=== PATIENT | female | born 1970 | race Caucasian/White ===

== ENCOUNTER 2017-11-04 14:09 | Observation (INO) | payer OTHER ==
[2017-11-04] MEDS ORDERED: ONDANSETRON 4 MG/2 ML VIAL IVP STA (14:44)
[2017-11-04] MEDS ORDERED: NITROGLYCERIN OINT 1 INCH/GM PACKET TOPICAL STA (14:44)
[2017-11-04] MEDS ORDERED: SODIUM CHLORIDE 0.9% 1,000 ML IV STA (14:44)
[2017-11-04] MEDS ORDERED: MORPHINE SULFATE 2 MG/ML SYRINGE IVP STA (14:44)
[2017-11-04 14:55] LABS: Basophils # (A) 0.1 k/uL (0-0.2); Basophils % (A) 1 %; Eosinophils # (A) 0.3 k/uL (0-0.7); Eosinophils % (A) 5 %; HCT 43.4 % (34.0-46.0); HGB 14.4 gm/dL (11.4-16.0); Lymphocytes # (A) 2.3 k/uL (1.0-4.8); Lymphocytes % (A) 37 %; MCH 31.8 pg (25.0-35.0); MCHC 33.2 g/dL (31.0-37.0); MCV 95.7 fL (80.0-100.0); Mean Platelet Volume 8.3; Monocytes # (A) 0.3 k/uL (0-1.0); Monocytes % (A) 5 %; Neutrophils # (A) 3.1 k/uL (1.3-7.7); Neutrophils % (A) 50 %; Platelet Count 285 k/uL (150-450); RBC 4.53 m/uL (3.80-5.40); WBC 6.2 k/uL (3.8-10.6)
[2017-11-04 15:06] LABS: ALT 45 U/L (9-52); AST 31 U/L (14-36); Albumin 4.3 g/dL (3.5-5.0); Alkaline Phosphatase 67 U/L (38-126); Anion Gap 10 mmol/L; Blood Urea Nitrogen 14 mg/dL (7-17); Calcium 9.9 mg/dL (8.4-10.2); Carbon Dioxide 23 mmol/L (22-30); Chloride 104 mmol/L (98-107); Glucose 291 mg/dL (74-99); Magnesium 1.7 mg/dL (1.6-2.3); Potassium 4.1 mmol/L (3.5-5.1); Sodium 137 mmol/L (137-145); Total Bilirubin 0.6 mg/dL (0.2-1.3); Total Protein 7.1 g/dL (6.3-8.2)
[2017-11-04 15:08] LABS: D-Dimer 0.21 mg/L FEU (<0.60); Partial Thromboplastin Time 22.4 sec (22.0-30.0)
[2017-11-04 15:10] LABS: Creatine Kinase 78 U/L (30-135)
--- NOTE | 2017-11-04 15:16 | ED ---
Chest Pain HPI - General Chief Complaint: Chest Pain Stated Complaint: Chest pain Time Seen by Provider: 11/04/17 14:44 Source: patient Mode of arrival: wheelchair Limitations: no limitations - History of Present Illness Initial Comments: 47 years old female presents with the chest pain, she was shopping today chest pain started at hour prior to arrival to the ER today she is also short winded and now chest pain gets worse with a deep breaths she has stopped smoking recently but she has smoked for about 30 years prior to that she stated family history significant for heart disease mom had a myocardial infarction in late 40s and dad had a myocardial infarction in the late 40s as well she was quite short winded and now she was diaphoretic and she felt generalized weakness when the chest pain was noticed. She still has a 3/10 chest pain review of system is unremarkable otherwise - Related Data Home Medications Medication Instructions Recorded Confirmed metFORMIN HCL [Glucophage] 500 mg PO BID 04/14/15 11/04/17 Dulaglutide [Trulicity] 1.5 mg SQ HS 11/04/17 11/04/17 metFORMIN HCL 1,000 mg PO BID 11/04/17 11/04/17 Allergies Allergy/AdvReac Type Severity Reaction Status Date / Time ciprofloxacin [From Cipro] Allergy Anaphylaxis Verified 11/04/17 14:49 meperidine HCl [From Demerol] Allergy Unknown Verified 11/04/17 14:49 Sulfa (Sulfonamide Allergy Unknown Verified 11/04/17 14:49 Antibiotics) Review of Systems ROS Statement: Those systems with pertinent positive or pertinent negative responses have been documented in the HPI. ROS Other: All systems not noted in ROS Statement are negative. EKG Findings - EKG Comments: EKG Findings:: I'm EKG is normal sinus ventricular rate is 68 ME interval is 152 QRS duration is 88 QT/QTc is 390/423 and aVF this EKG does not reveal any ST elevation or ST depression Past Medical History Past Medical History: Diabetes Mellitus Additional Past Medical History / Comment(s): lupus, pancreatitis, cardiac arrythmia (unknown) History of Any Multi-Drug Resistant Organisms: None Reported Past Surgical History: Cholecystectomy Additional Past Surgical History / Comment(s): shunt for gallstones Past Psychological History: No Psychological Hx Reported Smoking Status: Current every day smoker Past Alcohol Use History: None Reported Past Drug Use History: None Reported General Exam - General Exam Comments Initial Comments: General: The patient is awake and alert, in no distress, and does not appear acutely ill. Skin: Skin is warm and dry and no rashes or lesions are noted. Eye: Pupils are equal, round and reactive to light, extra-ocular movements are intact; there is normal conjunctiva bilaterally. Ears, nose, mouth and throat: There are moist mucous membranes and no oral lesions. Neck: The neck is supple, there is no tenderness or JVD. Cardiovascular: There is a regular rate and rhythm. No murmur, rub or gallop is appreciated. Respiratory: To auscultation bilateral, no wheezing no rhonchi no distress respiratory moran noticed, lung exam is consistent with the moderate COPD Gastrointestinal: Soft, non-distended, non-tender abdomen without masses or organomegaly noted. There is no rebound or guarding present. Bowel sounds are unremarkable. Back: There is no tenderness to palpation in the midline. There is no obvious deformity. Musculoskeletal: Normal ROM, no tenderness, There is no pedal edema. There is no calf tenderness or swelling. No cords were appreciated. Neurological: CN II-XII intact, Cranial nerves III through XII are intact. There are no obvious motor or sensory deficits. Coordination appears grossly intact. Speech is normal. Psychiatric: Cooperative, appropriate mood & affect, normal judgment. Limitations: no limitations Course Vital Signs 11/04/17 11/04/17 14:16 15:10 Temperature 97.5 F L Pulse Rate 77 Pulse Rate [ 75 Steamer Gum Candy ] Respiratory 16 Rate Blood Pressure 141/81 O2 Sat by Pulse 100 Oximetry Plan reassessment CBC, CMP, d-dimer, troponin, EKG are unremarkable she has smoked for 30+ years and both her parents had already heart disease considering that I recommended we admit her RADIOLOGY consult and a she be getting an aspirin and nitro or hold off the heparin at this point Dr. Mcadams agreed with that plan and cardiology be consulted Disposition Clinical Impression: Chest pain, Pleuritic chest pain Disposition: ADMITTED IP TO THIS HOSP Condition: Good Referrals: Gloria Ch MD [Primary Care Provider] - 1-2 days
[2017-11-04 15:23] LABS: Creatine Kinase MB 0.8 ng/mL (0.0-2.4); Troponin I <0.012 ng/mL (0.000-0.034)
--- NOTE | 2017-11-04 16:27 | XR ---
EXAMINATION TYPE: XR chest 2V DATE OF EXAM: 11/04/2017 COMPARISON: NONE HISTORY: Chest pain TECHNIQUE: Frontal and lateral views of the chest are obtained. FINDINGS: There is no focal air space opacity, pleural effusion, or pneumothorax seen. Linear areas of opacification are seen in the bilateral lung bases. The cardiac silhouette size is within normal limits. The osseous structures are intact. IMPRESSION: No acute cardiopulmonary process. Bibasilar subsegmental atelectasis.
[2017-11-04] MEDS ORDERED: MORPHINE SULFATE 2 MG/ML SYRINGE IVP PRN (16:40)
[2017-11-04] MEDS ORDERED: NITROGLYCERIN SL TABS 0.4 MG TAB SUBLINGUAL PRN (16:40)
[2017-11-04] MEDS ORDERED: metFORMIN 500 MG TAB PO SCH ×2 (17:30→21:00)
[2017-11-04 17:34] VITALS: RESP 16
[2017-11-04] MEDS: INSULIN ASPART 100 UNIT/ML 1 ML 10 ML VIAL SQ SCH (20:19)
[2017-11-04 20:32] LABS: Glucose,Whole Blood 393 mg/dL (75-99)
[2017-11-04] MEDS ORDERED: PATIENT'S OWN MED (Dulaglutide [Trulicity] 1.5 MG) SQ SCH (21:00)
[2017-11-04] MEDS ORDERED: LIRAGLUTIDE 1.8 MG SQ SCH ×2 (21:00)
[2017-11-04 21:23] LABS: Creatine Kinase 57 U/L (30-135)
[2017-11-04 21:34] LABS: Creatine Kinase MB 0.5 ng/mL (0.0-2.4); Troponin I <0.012 ng/mL (0.000-0.034)
[2017-11-05 01:33] LABS: Cholesterol 262 mg/dL (<200); HDL Cholesterol 47 mg/dL (40-60); LDL Cholesterol,Calculated 139 mg/dL (0-99); Triglycerides 382 mg/dL (<150)
[2017-11-05 03:13] LABS: Creatine Kinase 55 U/L (30-135)
[2017-11-05 03:24] LABS: Creatine Kinase MB 0.4 ng/mL (0.0-2.4); Troponin I <0.012 ng/mL (0.000-0.034)
[2017-11-05 06:38] LABS: Glucose,Whole Blood 286 mg/dL (75-99)
[2017-11-05] MEDS: INSULIN ASPART 100 UNIT/ML 1 ML 10 ML VIAL SQ SCH ×2 (08:28→12:31)
--- NOTE | 2017-11-05 08:48 | CONS ---
CONSULTATION Mrs. Garcia is a 47-year-old female with a known history of diabetes, prior history of pancreatitis, who presented with symptoms of chest discomfort. She was shopping yesterday when she had a chest discomfort associated with diaphoresis and not feeling well. The symptoms lasted for over an hour, she came into the emergency room and subsequently admitted. In the emergency room, she had respirophasic pattern to the discomfort. This subsequently resolved. She is pain-free at this time. She is usually active physically without any associated symptoms. She has some dyspnea on exertion at times that has been stable. Occasional peripheral edema. No PND, no orthopnea. She has no syncope. She had a prior episode of chest discomfort about 1- 1/2 year ago and was seen by Dr. Brunner and underwent stress test that according to her was unremarkable. Her coronary risk factors are remarkable for hyperlipidemia and diabetes. She has stopped smoking a year and a half ago. MEDICATIONS: Include Victoza and Glucophage. REVIEW OF SYSTEMS: RESPIRATORY SYSTEM: She has no documented history of asthma, emphysema or bronchitis. GI SYSTEM: No recent GI bleeding. No peptic ulcer disease. SYSTEM: No dysuria or hematuria. She had a remote history of GI bleeding. NERVOUS SYSTEM: No history of stroke or seizure. PHYSICAL EXAMINATION: She is a 47-year-old female, alert, oriented, in no apparent distress blood pressure running in the low 100 and high 90s head, heart rate in the 70s. HEAD: Normocephalic eyes sclerae anicteric neck good upstroke no bruit initially distention clear to auscultation. HEART: Regular rhythm S1, S2. No S3. No S4. No rub. ABDOMEN: Soft, nontender. Positive bowel sounds, no organomegaly. EXTREMITIES: No edema, intact pulses. Chest wall with no chest wall tenderness. EKG sinus mechanism, normal axis and intervals. Normal echocardiogram. LAB DATA: Revealed troponin less than 0.012. Cholesterol 262, LDL 139. BUN and creatinine 14 and 0.8, hemoglobin of 14.4. IMPRESSION: 1. Chest discomfort, has some atypical feature for ischemic cardiac disease, probably noncardiac. 2. History of hyperlipidemia, not rated at this time. Patient has not been compliant with her medication on a regular basis. 3. Diabetes mellitus. 4. Prior history of smoking. RECOMMENDATION: I have recommend proceeding with a stress echocardiogram and a transthoracic echo and depending on those findings, further recommendation will be made. Thank you for this consult. Will follow with you. MMODL / IJN: [id number] /
[2017-11-05] MEDS ORDERED: ATORVASTATIN 40 MG TAB PO SCH (09:00)
[2017-11-05] MEDS ORDERED: ASPIRIN 325 MG TAB PO SCH (09:00)
[2017-11-05] MEDS ORDERED: ASPIRIN 81 MG PO SCH (09:00)
[2017-11-05 09:38] LABS: Basophils % (A) 1 %; Eosinophils # (A) 0.3 k/uL (0-0.7); Eosinophils % (A) 6 %; HCT 42.9 % (34.0-46.0); HGB 13.5 gm/dL (11.4-16.0); Lymphocytes # (A) 1.9 k/uL (1.0-4.8); Lymphocytes % (A) 37 %; MCH 30.6 pg (25.0-35.0); MCHC 31.4 g/dL (31.0-37.0); MCV 97.4 fL (80.0-100.0); Mean Platelet Volume 7.9; Monocytes # (A) 0.2 k/uL (0-1.0); Monocytes % (A) 5 %; Neutrophils # (A) 2.6 k/uL (1.3-7.7); Neutrophils % (A) 50 %; Platelet Count 245 k/uL (150-450); RDW 13.2 % (11.5-15.5); WBC 5.3 k/uL (3.8-10.6)
[2017-11-05 09:53] LABS: ALT 45 U/L (9-52); AST 26 U/L (14-36); Albumin 3.7 g/dL (3.5-5.0); Alkaline Phosphatase 62 U/L (38-126); Anion Gap 8 mmol/L; Blood Urea Nitrogen 14 mg/dL (7-17); Calcium 9.6 mg/dL (8.4-10.2); Carbon Dioxide 24 mmol/L (22-30); Chloride 104 mmol/L (98-107); Glucose 304 mg/dL (74-99); Potassium 4.5 mmol/L (3.5-5.1); Sodium 136 mmol/L (137-145); Total Bilirubin 0.5 mg/dL (0.2-1.3); Total Protein 6.2 g/dL (6.3-8.2)
--- NOTE | 2017-11-05 10:07 | ECHOF ---
Referral Reason: MEASUREMENTS -------- HEIGHT: 167.6 cm WEIGHT: 96.6 kg BP: 99/62 IVSd: 1.0 cm (0.6 - 1.1) LVIDd: 4.0 cm (3.9 - 5.3) LVPWd: 1.0 cm (0.6 - 1.1) IVSs: 1.2 cm LVIDs: 2.4 cm LVPWs: 1.3 cm LAESV Index (A-L): 13.57 ml/m Ao Diam: 2.9 cm (2.0 - 3.7) AV Cusp: 1.7 cm (1.5 - 2.6) LA Diam: 2.8 cm (2.7 - 3.8) EPSS: 0.9 cm MV E Foreign: 0.75 m/s MV DecT: 278 ms MV A Foreign: 0.52 m/s MV E/A Ratio: 1.45 RAP: 5.00 mmHg RVSP: 10.39 mmHg MV EF SLOPE: 152.95 mm/s (70 - 150) MV EXCURSION: 2.03 cm (> 18.000) FINDINGS -------- Sinus rhythm. This was a technically adequate study. The left ventricular size is normal. Left ventricular wall thickness is normal. Overall left vent ricular systolic function is normal with, an EF between 55 - 60 %. The right ventricle is normal in size and function. Normal LA size by volume 22+/-6 ml/m2. The right atrium is normal in size. The aortic valve is trileaflet, and appears structurally normal. No aortic stenosis or regurgitation. The mitral valve is normal. There is trace to mild mitral regurgitation. Trace tricuspid regurgitation present. Right ventricular systolic pressure is normal at < 35 mmHg. There is no evidence of pulmonary hypertension. The pulmonic valve was not well visualized. There is no pulmonic regurgitation present. The aortic root size is normal. Normal inferior vena cava with normal inspiratory collapse consistent with estimated right atrial pre ssure of 5 mmHg. There is no pericardial effusion. CONCLUSIONS -------- 1. Sinus rhythm. 2. This was a technically adequate study. 3. The left ventricular size is normal. 4. Left ventricular wall thickness is normal. 5. Overall left ventricular systolic function is normal with, an EF between 55 - 60 %. 6. Normal LA size by volume 22+/-6 ml/m2. 7. The aortic valve is trileaflet, and appears structurally normal. No aortic stenosis or regurgitati on. 8. There is trace to mild mitral regurgitation. 9. Trace tricuspid regurgitation present. 10. Right ventricular systolic pressure is normal at < 35 mmHg. 11. The pulmonic valve was not well visualized. 12. There is no pulmonic regurgitation present. 13. The aortic root size is normal. 14. There is no pericardial effusion. [employer] RN: Cliff Mooney RDCS
--- NOTE | 2017-11-05 10:14 | P.HPIM ---
History of Present Illness H&P Date: 11/05/17 Chief Complaint: chest pain This is a 47-year-old female patient of Dr. Ch. Patient states she was out shopping yesterday when she started to experience chest pain. Patient stated the pain lasted for approximately 1 hour. Patient does have a significant family history of both her mother and father having myocardial infarctions in their late 40s. Patient's medical history includes diabetes mellitus, lupus, pancreatitis, ex-smoker and cardiac arrhythmia that she states was during a dental procedure and was an isolated incident over a year ago. She does report that she does not take her Lipitor or insulin regularly doing due to side effects. Patient states that her regular blood sugar is in the 300. Patient also states the only insulin she can tolerate is vitoza. Chest x-ray completed emergency room showing no acute cardiopulmonary process. Bibasilar subsegmental atelectasis. EKG completed showing normal sinus rhythm. Normal EKG. Troponins have been negative. cardiology services have been consulted. 2 -D echo and stress echocardiogram have been ordered per cardiology. Patient is eager to go home. Blood sugar elevated at 393. Per nursing staff patient was drinking soda and had sugary snacks at bedside. Due to ALLERGIES to multiple insulins patient's was restarted on her home medication of victoza only. At this time patient denies any chest pain or shortness of breath. Denies nausea vomiting or diarrhea. Denies chills or sweats. Denies any urinary burning or frequency. Review of Systems Please refer to HPI otherwise unremarkable Past Medical History Past Medical History: Diabetes Mellitus Additional Past Medical History / Comment(s): lupus, pancreatitis, cardiac arrythmia (unknown) History of Any Multi-Drug Resistant Organisms: None Reported Past Surgical History: Cholecystectomy Additional Past Surgical History / Comment(s): shunt for gallstones Past Anesthesia/Blood Transfusion Reactions: No Reported Reaction Past Psychological History: No Psychological Hx Reported Smoking Status: Former smoker Past Alcohol Use History: None Reported Past Drug Use History: None Reported - Past Family History Father Family Medical History: Congestive Heart Failure (CHF), Diabetes Mellitus Additional Family Medical History / Comment(s): cabg Mother Family Medical History: Congestive Heart Failure (CHF), CVA/TIA, Myocardial Infarction (CA) Medications and Allergies Home Medications Medication Instructions Recorded Confirmed Type metFORMIN HCL [Glucophage] 500 mg PO -BRKFST 04/14/15 11/05/17 History Liraglutide [Victoza 3-Bharat] 1.8 mg SQ HS 11/04/17 11/04/17 History metFORMIN HCL 1,000 mg PO AC-BID 11/04/17 11/05/17 History Allergies Allergy/AdvReac Type Severity Reaction Status Date / Time ciprofloxacin [From Cipro] Allergy Anaphylaxis Verified 11/04/17 14:49 insulin detemir Allergy Dyspnea Verified 11/04/17 20:04 insulin glargine Allergy Dyspnea Verified 11/04/17 20:04 meperidine HCl [From Demerol] Allergy Unknown Verified 11/04/17 14:49 Sulfa (Sulfonamide Allergy Unknown Verified 11/04/17 14:49 Antibiotics) Physical Exam Vitals: Vital Signs Temp Pulse Pulse Pulse Resp BP BP 11/05/17 07:33 97.8 F 70 16 11/05/17 03:22 16 11/05/17 03:02 97.9 F 65 16 11/04/17 23:16 16 11/04/17 23:05 98.1 F 71 16 108/73 11/04/17 20:00 16 11/04/17 19:15 97.7 F 86 16 11/04/17 17:07 97.5 F L 66 16 125/61 11/04/17 17:00 97.2 F L 68 18 115/60 11/04/17 16:20 59 L 18 121/56 11/04/17 15:10 75 11/04/17 14:16 97.5 F L 77 16 141/81 BP Pulse Ox 11/05/17 07:33 99/62 98 11/05/17 03:22 11/05/17 03:02 95/66 98 11/04/17 23:16 11/04/17 23:05 99 11/04/17 20:00 11/04/17 19:15 109/73 98 11/04/17 17:07 98 11/04/17 17:00 97 11/04/17 16:20 98 11/04/17 15:10 11/04/17 14:16 100 Intake and Output 11/04/17 11/05/17 11/05/17 22:59 06:59 14:59 Other: Voiding Method Toilet Toilet # Voids 2 Weight 96.9 kg Head normocephalic Neck supple Lungs clear to auscultation bilaterally no wheezing or crackles Heart regular rate and rhythm S1-S2, no rub or gallop Abdomen is soft nontender nondistended positive bowel sounds no hepatosplenomegaly Extremities no edema Neuro alert and orientated to 3 Results CBC & Chem 7: 11/05/17 09:13 11/04/17 14:37 Labs: Abnormal Lab Results - Last 24 Hours (Table) 11/04/17 11/04/17 11/04/17 Range/Units 14:37 14:37 20:24 Glucose 291 H (74-99) mg/dL POC Glucose (mg/dL) 393 H (75-99) mg/dL Triglycerides 382 H (<150) mg/dL Cholesterol 262 H (<200) mg/dL LDL Cholesterol, Calc 139 H (0-99) mg/dL 11/05/17 Range/Units 06:34 Glucose (74-99) mg/dL POC Glucose (mg/dL) 286 H (75-99) mg/dL Triglycerides (<150) mg/dL Cholesterol (<200) mg/dL LDL Cholesterol, Calc (0-99) mg/dL Thrombosis Risk Factor Assmnt - Choose All That Apply Each Factor Represents 1 point: Age 41-60 years, Obesity (BMI >25) Thrombosis Risk Factor Assessment Total Risk Factor Score: 2 Thrombosis Risk Factor Assessment Level: Low Risk Assessment and Plan Assessment: 1. Chest pain. EKG completed showing normal sinus rhythm. Troponins have been negative chest x-ray negative for acute cardiopulmonary process. Bibasilar subsegmental atelectasis. Cardiology services have been consulted. 2 -D echo and stress echo have been ordered. 2. Diabetes mellitus type 2. Patient takes metformin and Victoza. She also states her regular blood sugars is around 300. Patient states she has multiple ALLERGIES to many insulins. Patient is noncompliant with diabetic diet 3. Hyperlipidemia. Patient states she has been noncompliant with her Lipitor at home. Her triglyceride 382, cholesterol 262 and LDL 139. Lipitor is been reordered 4. History of lupus 5. History of cardiac arrhythmia. Patient states this event was an isolated event that happened during a dental procedure. Patient did follow up with cardiology at that time. EKG completed in emergency room showing normal sinus rhythm 6. Ex-smoker 7. History of pancreatitis DVT prophylaxis Lovenox. GI prophylaxis Pepcid Time with Patient: Greater than 30 (Greater than 60% of the total time spent in counseling and coordination of care. I performed an examination of the patient and discussed their management with the Nurse Practitioner. I have reviewed the Nurse Practitioner's notes and agree with the documented findings and plan of care)
[2017-11-05 12:02] VITALS: BP 122/79; PULSE 84; TEMP 98.4
[2017-11-05 12:45] LABS: Hemoglobin A1C 14.2 % (4.0-6.0)
[2017-11-05 13:02] LABS: Glucose,Whole Blood 374 mg/dL (75-99)
--- NOTE | 2017-11-05 13:51 | ECHOS ---
STRESS ECHOCARDIOGRAM INDICATIONS: Chest pain. MEDICATIONS: Metformin, Lipitor, Victoza, aspirin, Aldactone. BASELINE HEART RATE: 64 BASELINE BLOOD PRESSURE: 100/61 MAXIMUM HEART RATE: 153 MAXIMUM BLOOD PRESSURE: 213/60 85% MPHR: 147 100% MPHR: 173 METS: 10.9 MAXIMUM STAGE REACHED: 4 TOTAL EXERCISE TIME: 9:15 CLINICAL INFORMATION: Baseline rhythm is sinus mechanism, rate 64, normal axis, intervals, normal echocardiogram. Baseline blood pressure 100/61 mmHg. Patient exercised on [place]gh[place] protocol for 9 minute 15 seconds reaching a peak rate of 153 beats per minute which is equal to 88% maximum predicted heart rate. Peak blood pressure 213/60 mmHg. Test was terminated due to fatigue. There was no chest pain. Electrocardiograph monitoring revealed no evidence of diagnostic ischemic ST deviation. FINDINGS: Baseline echocardiogram revealed normal function at peak exercise, there was normal wall motion augmentation with no hypokinesis or dyskinesis. CONCLUSION: 1. Average exercise tolerance with normal electrocardiograph response to exercise. 2. Normal stress echocardiogram with no evidence of stress-induced ischemia. MMODL / IJN: [id number] /
--- NOTE | 2017-11-05 14:48 | P.DS ---
Providers Date of admission: 11/04/17 16:41 Expected date of discharge: 11/05/17 Attending physician: Samantha Mcadams Consults: 11/04/17 16:41 Consult Physician Urgent Consulting Provider: Dexter Brunner Consult Reason/Comments: Chest pain Do you want consulting provider notified?: Yes Primary care physician: Gloria Ch Hospital Course: Discharge diagnosis 1. Chest pain. EKG completed showing normal sinus rhythm. Troponins have been negative chest x-ray negative for acute cardiopulmonary process. Bibasilar subsegmental atelectasis. Cardiology services have been consulted. 2 -D echo and stress echo have been ordered. 2-D echo completed showing EF between 55 and 60%. Stress echo completed showing average exercise tolerance with normal electrocardiographic response to exercise. Normal stress echocardiogram with no evidence of stress-induced ischemia. Discussed case with cardiology. Patient has been cleared for discharge. Patient will be discharged home on baby aspirin 81 mg patient to follow-up with gaming worker. 2. Diabetes mellitus type 2. Patient takes metformin and Victoza. She also states her regular blood sugars is around 300. Patient states she has multiple ALLERGIES to many insulins. Patient is noncompliant with diabetic diet. Blood sugar remains elevated. Patient educated on diabetic diet compliance and the importance of medication compliance. Patient does state she will follow-up closely with primary care provider 3. Hyperlipidemia. Patient states she has been noncompliant with her Lipitor at home. Her triglyceride 382, cholesterol 262 and LDL 139. Lipitor has been reordered. Patient educated on the importance of taking cholesterol-lowering medication. 4. History of lupus 5. History of cardiac arrhythmia. Patient states this event was an isolated event that happened during a dental procedure. Patient did follow up with cardiology at that time. EKG completed in emergency room showing normal sinus rhythm 6. Ex-smoker 7. History of pancreatitis Hospital course This is a 47-year-old female patient of Dr. Ch. Patient states she was out shopping yesterday when she started to experience chest pain. Patient stated the pain lasted for approximately 1 hour. Patient does have a significant family history of both her mother and father having myocardial infarctions in their late 40s. Patient's medical history includes diabetes mellitus, lupus, pancreatitis, ex-smoker and cardiac arrhythmia that she states was during a dental procedure and was an isolated incident over a year ago. She does report that she does not take her Lipitor or insulin regularly doing due to side effects. Patient states that her regular blood sugar is in the 300. Patient also states the only insulin she can tolerate is vitoza. Chest x-ray completed emergency room showing no acute cardiopulmonary process. Bibasilar subsegmental atelectasis. EKG completed showing normal sinus rhythm. Normal EKG. Troponins have been negative. cardiology services have been consulted. 2 -D echo and stress echocardiogram have been ordered per cardiology. Patient is eager to go home. Blood sugar elevated at 393. Per nursing staff patient was drinking soda and had sugary snacks at bedside. Due to ALLERGIES to multiple insulins patient's was restarted on her home medication of victoza only. At this time patient denies any chest pain or shortness of breath. Denies nausea vomiting or diarrhea. Denies chills or sweats. Denies any urinary burning or frequency. On 11/05/2017 with for discharge from cardiology standpoint. Patient to follow up with cardiology and primary care provider outpatient. Patient thoroughly educated on the importance of medication compliance regards to diabetes and cholesterol-lowering medication. Patient denies chest pain or shortness breath. Denies nausea vomiting I performed an examination of the patient and discussed their management with the Nurse Practitioner. I have reviewed the Nurse Practitioner's notes and agree with the documented findings and plan of care Patient Condition at Discharge: Good Plan - Discharge Summary Discharge Rx Participant: No New Discharge Prescriptions: New Aspirin 81 mg PO DAILY #30 chew Atorvastatin [Lipitor] 40 mg PO DAILY #30 tab Continue metFORMIN HCL [Glucophage] 500 mg PO AC-BRKFST metFORMIN HCL 1,000 mg PO AC-BID Liraglutide [Victoza 3-Bharat] 1.8 mg SQ HS Discharge Medication List metFORMIN HCL [Glucophage] 500 mg PO AC-BRKFST 04/14/15 [History] Liraglutide [Victoza 3-Bharat] 1.8 mg SQ HS 11/04/17 [History] metFORMIN HCL 1,000 mg PO AC-BID 11/04/17 [History] Aspirin 81 mg PO DAILY #30 chew 11/05/17 [Rx] Atorvastatin [Lipitor] 40 mg PO DAILY #30 tab 11/05/17 [Rx] Follow up Appointment(s)/Referral(s): Gloria Ch MD [Primary Care Provider] - 1-2 days Dexter Brunner MD [STAFF PHYSICIAN] - 1 Week Activity/Diet/Wound Care/Special Instructions: Diet consistent carb activity as tolerated Discharge Disposition: HOME SELF-CARE
[2017-11-06] MEDS ORDERED: FAMOTIDINE 20 MG TAB PO SCH (09:00)
[2017-11-06] MEDS ORDERED: ENOXAPARIN 40 MG/0.4 ML SYRINGE SQ SCH (09:00)
== END 2017-11-05 15:55 | disposition home or self-care (01) ==
LOC: EC 14:09 → 3OBS 16:41
PROVIDERS: ADMIT Internal Medicine; ATTEND Internal Medicine
DX: R07.89 Other chest pain (principal); E11.65 Type 2 diabetes mellitus with hyperglycemia; Z79.84 Long term (current) use of oral hypoglycemic drugs; Z91.11 Patient's noncompliance with dietary regimen; Z91.14 Patient's other noncompliance with medication regimen; E78.5 Hyperlipidemia, unspecified; M32.9 Systemic lupus erythematosus, unspecified; I49.9 Cardiac arrhythmia, unspecified; Z87.891 Personal history of nicotine dependence; R61 Generalized hyperhidrosis; R06.02 Shortness of breath; R53.1 Weakness; E66.9 Obesity, unspecified; Z68.34 Body mass index [BMI] 34.0-34.9, adult; K85.90 Acute pancreatitis without necrosis or infection, unspecified; Z82.49 Family history of ischemic heart disease and other diseases of the circulatory system; Z82.3 Family history of stroke; Z88.8 Allergy status to other drugs, medicaments and biological substances; Z88.2 Allergy status to sulfonamides; Z88.1 Allergy status to other antibiotic agents; Z88.5 Allergy status to narcotic agent; Z90.49 Acquired absence of other specified parts of digestive tract
CPT/HCPCS: 99285; 96374; 36415; 93005; 93306; 93351; 85379; 83880; 80061; 80053 ×2; 82550 ×2; 82553 ×2; 83735; 84484 ×2; 85025 ×2; 85610; 85730; 83036; 71046; G0378 ×2; J2405

== ENCOUNTER 2018-07-14 00:51 | Emergency (ER) | payer OTHER ==
[2018-07-14] MEDS ORDERED: PROPOFOL 10 MG/ML 20 ML VIAL IV STA (01:00)
[2018-07-14] MEDS ORDERED: MORPHINE SULFATE 4 MG/ML SYRINGE IVP STA (01:25)
--- NOTE | 2018-07-14 01:56 | XR ---
LEFT SHOULDER, 1 VIEW INDICATION: Pain COMPARISON: None FINDINGS: Single AP view of the left shoulder are obtained. There is no evidence of acute fracture. The acromioclavicular joint is congruent. Assessment of glenohumeral joint congruence is limited on a single view. IMPRESSION: No acute fracture identified. Assessment of glenohumeral joint congruence is limited on a single view.
--- NOTE | 2018-07-14 01:56 | XR ---
LEFT SHOULDER, 1 VIEW INDICATION: Shoulder pain COMPARISON: AP radiograph of the left shoulder the same date FINDINGS: Lateral view of the left shoulder is provided. The humeral head appears posteriorly dislocated from the glenoid fossa. No fracture is visualized. IMPRESSION: 1. Posterior glenohumeral joint dislocation.
[2018-07-14] MEDS ORDERED: KETOROLAC 30 MG/ML 1 ML VIAL IVP STA (02:33)
[2018-07-14] MEDS ORDERED: DIAZEPAM 5 MG/ML 2 ML INJ IVP STA (02:33)
--- NOTE | 2018-07-14 02:57 | XR ---
LEFT SHOULDER, 1 VIEW INDICATION: Postreduction COMPARISON: Left shoulder radiographs 07/14/18 at 0107 hrs. and 0147 hrs. FINDINGS: Single AP view of the left shoulder are obtained. No fracture is visualized. The acromioclavicular joint is congruent. The glenohumeral joint appears normally aligned, although alignment is incompletely assessed on a single view. IMPRESSION: 1. Glenohumeral joint appears normally aligned, although evaluation of alignment is limited on a single view. 2. No fracture is visualized.
--- NOTE | 2018-07-14 03:02 | ED ---
Upper Extremity HPI - General Source: patient Mode of arrival: EMS Limitations: no limitations <Gracie Wakefield - Last Filed: 07/14/18 03:24> <Diane Barbour - Last Filed: 07/15/18 08:06> - General Chief Complaint: Extremity Injury, Upper Stated Complaint: Left Arm Injury Time Seen by Provider: 07/14/18 00:53 - History of Present Illness Initial Comments: 47-year-old female patient presents to the emergency department today for evaluation of left shoulder dislocation. The patient states that 2 hours ago she was getting dressed after getting out of the shower and she felt the shoulder dislocate. Patient states she did attempt for 2 hours to repeat located on her own however was unsuccessful. Patient does admit to slamming the shoulder against a door frame several times. Patient denies any numbness or tingling in the arm. States it is very painful. Patient states this is her fourth shoulder dislocation and she was able to relocate the shoulder on her own the first 3 times. Patient states she did follow up with orthopedics and has attempted physical therapy however there is no intervention planned for her at this time. She denies any other injuries or concerns. Patient denies any headache, neck pain, back pain, chest pain, shortness of breath, dizziness, weakness, abdominal pain, nausea, vomiting, or difficulties with bowel movements or urination. (Gracie Wakefield) - Related Data Home Medications Medication Instructions Recorded Confirmed metFORMIN HCL [Glucophage] 500 mg PO AC-BRKFST 04/14/15 11/05/17 Liraglutide [Victoza 3-Bharat] 1.8 mg SQ HS 11/04/17 11/04/17 metFORMIN HCL 1,000 mg PO AC-BID 11/04/17 11/05/17 Previous Rx's Medication Instructions Recorded Aspirin 81 mg PO DAILY #30 chew 11/05/17 Atorvastatin [Lipitor] 40 mg PO DAILY #30 tab 11/05/17 Cyclobenzaprine [Flexeril] 10 mg PO TID #15 tab 07/14/18 Ibuprofen [Motrin] 600 mg PO Q8HR PRN #30 tab 07/14/18 Allergies Allergy/AdvReac Type Severity Reaction Status Date / Time ciprofloxacin [From Cipro] Allergy Anaphylaxis Verified 11/04/17 14:49 insulin detemir Allergy Dyspnea Verified 11/04/17 20:04 insulin glargine Allergy Dyspnea Verified 11/04/17 20:04 meperidine HCl [From Demerol] Allergy Unknown Verified 11/04/17 14:49 Sulfa (Sulfonamide Allergy Unknown Verified 11/04/17 14:49 Antibiotics) Review of Systems ROS Other: All systems not noted in ROS Statement are negative. <Gracie Wakefield - Last Filed: 07/14/18 03:24> ROS Other: All systems not noted in ROS Statement are negative. <Diane Barbour - Last Filed: 07/15/18 08:06> ROS Statement: Those systems with pertinent positive or pertinent negative responses have been documented in the HPI. Past Medical History Past Medical History: Diabetes Mellitus Additional Past Medical History / Comment(s): lupus, pancreatitis, cardiac arrythmia (unknown) History of Any Multi-Drug Resistant Organisms: None Reported Past Surgical History: Cholecystectomy Additional Past Surgical History / Comment(s): shunt for gallstones Past Anesthesia/Blood Transfusion Reactions: No Reported Reaction Past Psychological History: No Psychological Hx Reported Smoking Status: Former smoker Past Alcohol Use History: None Reported Past Drug Use History: None Reported - Past Family History Father Family Medical History: Congestive Heart Failure (CHF), Diabetes Mellitus Additional Family Medical History / Comment(s): cabg Mother Family Medical History: Congestive Heart Failure (CHF), CVA/TIA, Myocardial Infarction ([place]) <Gracie Wakefield - Last Filed: 07/14/18 03:24> General Exam Limitations: no limitations General appearance: alert, in no apparent distress, other (Physical well- developed, well-nourished adult female patient in no acute distress. Vital signs upon presentation are temperature 98.7F, pulse 102, respirations 22, blood pressure 145/80, pulse ox 96% on room air.) Eye exam: Present: normal appearance, PERRL, EOMI. Absent: scleral icterus, conjunctival injection, periorbital swelling ENT exam: Present: normal exam, normal oropharynx, mucous membranes moist Respiratory exam: Present: normal lung sounds bilaterally. Absent: respiratory distress, wheezes, rales, rhonchi, stridor Cardiovascular Exam: Present: regular rate, normal rhythm, normal heart sounds. Absent: systolic murmur, diastolic murmur, rubs, gallop, clicks Extremities exam: Present: full ROM, tenderness (Generalized left shoulder tenderness), normal capillary refill, other (There is obvious deformity noted of the left shoulder. Skin is otherwise pink, warm, dry. Cap refills less than 3 seconds. Radial pulses 2+ and equal bilaterally.). Absent: normal inspection, pedal edema, joint swelling, calf tenderness Neurological exam: Present: alert, oriented X3, CN II-XII intact Psychiatric exam: Present: normal affect, normal mood Skin exam: Present: warm, dry, intact, normal color. Absent: rash <Gracie Wakefield M - Last Filed: 07/14/18 03:24> Course Vital Signs 07/14/18 07/14/18 07/14/18 00:57 01:21 02:15 Temperature 98.7 F Pulse Rate 102 H 97 95 Respiratory 22 26 H 20 Rate Blood Pressure 145/80 139/82 154/82 O2 Sat by Pulse 96 99 97 Oximetry 07/14/18 07/14/18 07/14/18 02:17 02:20 02:35 Temperature Pulse Rate 92 95 98 Respiratory 16 16 16 Rate Blood Pressure 140/86 124/74 116/68 O2 Sat by Pulse 97 97 97 Oximetry 07/14/18 07/14/18 07/14/18 02:50 03:05 03:20 Temperature 98.2 F Pulse Rate 93 95 92 Respiratory 17 16 16 Rate Blood Pressure 121/70 116/68 121/70 O2 Sat by Pulse 99 98 99 Oximetry 07/14/18 03:54 Temperature Pulse Rate 81 Respiratory 14 Rate Blood Pressure O2 Sat by Pulse Oximetry Procedures - [place] Protocol (Time Out) Procedure Performed:: Left shoulder reduction Performing Provider: Diane Barbour Nurse: Shireen Quinones Respiratory Therapist: Wes Wu Patient Identification (2 identifiers required): Chart, Arm Band, Name, Birthdate Site: Left Shoulder Site Marked: No Site Verified With Patient/Guardian: Yes Final Confirmation: Procedure, Site, Patient Position, Special Equipment <Gracie Wakefield - Last Filed: 07/14/18 03:24> - Procedural Sedation Procedural Sedation Start Time: 02:15 Procedural Sedation Stop Time: 02:25 Indications: fracture/dislocation reduction ASA Class: II Preparation: rn cardiac applied, pulse oximeter, capnometry used, supplemental O2 applied, suction/airway equipment at bedside, IV secured IV Propofol Dose (mgs): 100 Complications: none <Diane Barbour - Last Filed: 07/15/18 08:06> Medical Decision Making - Radiology Data Radiology results: report reviewed, image reviewed <Gracie Wakefield - Last Filed: 07/14/18 03:24> - Medical Decision Making 47-year-old female patient percents to the emergency department today for evaluation of left shoulder dislocation. Patient reports dislocation occurring when she was attempting to get dressed. Physical examination did reveal obvious dislocation deformity to the left shoulder. X-ray was obtained and showed a posterior dislocation of the glenohumeral joint. My attending Dr. Barbour did see and evaluate the patient, did perform conscious sedation, she was able to easily reduce the left shoulder. Patient was placed in a shoulder immobilizer, repeat x-rays were obtained and did show satisfactory reduction of the left shoulder. Neurovascular status remained intact. Did give patient pain medication. She'll be discharged home to follow-up with orthopedics for further evaluation as soon as possible. She is instructed to keep sling in place until she follows up. Return parameters discussed in detail. She verbalizes understanding and agrees with this plan. (Gracie Wakefield) - Radiology Data Two-view x-ray of the left shoulder was obtained. Impression by Dr. Singh shows posterior glenohumeral joint dislocation. One view x-ray of the left shoulder was obtained. Report was reviewed in its entirety. Impression by Dr. Singh No acute fracture identified. Assessment glenohumeral drinking grants is limited in a single view. Single AP view of the left shoulder is obtained. Report was reviewed in its entirety. Impression by Dr. Singh shows glenohumeral joint appears normally aligned, although evaluation of alignment is limited in a single view. No fracture is visualized. (Gracie aWkefield) Disposition Is patient prescribed a controlled substance at d/c from ED?: No Time of Disposition: 03:24 <Gracie Wakefield - Last Filed: 07/14/18 03:24> <Diane Barbour - Last Filed: 07/15/18 08:06> Clinical Impression: Posterior dislocation of left shoulder joint Disposition: HOME SELF-CARE Condition: Good Instructions (If sedation given, give patient instructions): Shoulder Dislocation (ED) Additional Instructions: Apply ice to the left shoulder 20 minutes at a time at least 4 times daily. Use shoulder immobilizer until follow-up with orthopedics. Follow-up with orthopedics for recheck as soon as possible. Return to the emergency department immediately for any new, worsening, or concerning symptoms. Prescriptions: Cyclobenzaprine [Flexeril] 10 mg PO TID #15 tab Ibuprofen [Motrin] 600 mg PO Q8HR PRN #30 tab PRN Reason: Pain Referrals: Gloria Ch MD [Primary Care Provider] - 1-2 days
[2018-07-14] MEDS ORDERED: CYCLOBENZAPRINE 10MG STARTER 3 TAB BTL PO STA (03:04)
[2018-07-14] MEDS ORDERED: ACET/COD 300 MG/30 MG STARTER PACK 6 TAB BTL PO STA (03:04)
[2018-07-14 03:54] VITALS: BP 121/70; TEMP 98.2
[2018-07-14 03:55] VITALS: PULSE 81; RESP 14
--- NOTE | 2018-07-15 07:18 | CDI ---
Documentation Clarification OP Dear rGacie JUAN, [facility], Please provide addendum for moderate sedation procedure start and stop time to code the moderate sedation. Thank you, Devan Blunt. Auto Bumper Mechanic If you have any question, Please contact food operations manager at [phone] [facility]
== END 2018-07-14 03:35 | disposition home or self-care (01) ==
LOC: EC 00:51
DX: S43.005A Unspecified dislocation of left shoulder joint, initial encounter (principal); E11.9 Type 2 diabetes mellitus without complications; Z79.84 Long term (current) use of oral hypoglycemic drugs; Z88.1 Allergy status to other antibiotic agents; Z88.2 Allergy status to sulfonamides; Z88.5 Allergy status to narcotic agent; Z88.8 Allergy status to other drugs, medicaments and biological substances; Z87.891 Personal history of nicotine dependence; X58.XXXA Exposure to other specified factors, initial encounter
CPT/HCPCS: 99283; 23650; 96374; 96375 ×2; 99152; 73020; J2270; J3360; J1885; J2704

== ENCOUNTER → 2018-09-20 | Outpatient (CLI) | payer OTHER ==
--- NOTE | 2018-09-23 07:51 | MM ---
Reason for exam: clinical finding. Last mammogram was performed 2 years and 10 months ago. History: Patient is postmenopausal. Family history of breast cancer in paternal grandmother. Indicated problem(s): lump or thickening and pain in both breasts. Physical Findings: Nurse did not find any significant physical abnormalities on exam. MG 3D Diag Mammo W/Cad MARCIA Bilateral CC and MLO view(s) were taken. Spot compression MLO view(s) were taken of the left breast. Prior study comparison: November 18, 2015, bilateral MG 3d screening mammo w/cad. December 17, 2012, CAD bilateral diagnostic mammogram. The breast tissue is heterogeneously dense. This may lower the sensitivity of mammography. Focal asymmetry left upper MLO view. No significant new findings when compared with previous films. These results were verbally communicated with the patient and result sheet given to the patient on 09/20/18. ASSESSMENT: Probably benign, BI-RAD 3 RECOMMENDATION: Follow-up diagnostic mammogram of the left breast in 6 months. Manage patient on a clinical basis.
--- NOTE | 2018-09-23 07:52 | USB ---
Reason for exam: clinical finding. History: Patient is postmenopausal. Family history of breast cancer in paternal grandmother. Indicated problem(s): lump or thickening and pain in both breasts. US Breast BILAT Right complete breast ultrasound includes all four quadrants, the retroareolar region and axilla. Finding demonstrates no cystic or solid lesion seen. Left complete breast ultrasound includes all four quadrants, the retroareolar region and axilla. Finding demonstrates no cystic or solid lesion seen. These results were verbally communicated with the patient and result sheet given to the patient on 09/20/18. ASSESSMENT: Negative, BI-RAD 1 RECOMMENDATION: Follow-up diagnostic mammogram of the left breast in 6 months. Manage patient on a clinical basis.
== END | disposition home or self-care (01) ==
LOC: RADMAMWWP 13:39
PROVIDERS: ATTEND Family Medicine
DX: N64.59 Other signs and symptoms in breast (principal); N64.4 Mastodynia; L29.9 Pruritus, unspecified
CPT/HCPCS: 77066; 76641; G0279; 77062

== ENCOUNTER → 2018-09-27 | Outpatient (CLI) | payer OTHER ==
[2018-09-27 16:11] VITALS: BP 106/71; PULSE 67; RESP 18; TEMP 97.4
--- NOTE | 2018-09-27 16:56 | P.GSHP ---
History of Present Illness H&P Date: 09/27/18 Chief Complaint: Patient with bilateral breast This is a 48-year-old female who presents with a complaint of bilateral breast pain. The pain is worse on the left side, and appears to be in the outer quadrant areas of both breasts. Of importance is the fact that she had a bilateral 3-D mammogram performed on which is felt to be probably benign BIRADS 3 and follow-up diagnostic mammogram of the left breast in 6 months was recommended. Additionally she underwent [place] of both breast [place] [id number] which was felt to be benign BIRADS 1. In the left breastcystic or solid lesions were seen, and in the right breast is cystic or solid lesions were seen. The mammogram focal asymmetry in the left MLO view was noted for which repeat mammogram was recommended. She was seen in [place] September of this year and a CAT scan was done of her breast. She was recommended to see dermatology at [facility] on November 14. The pain has been persistent for approximately 7-8 months. It is increasing in intensity. The pain is constant. The pain is worse with any palpation. The patient has no nipple discharge or changes. She also complains about itching of both breast for angeline past month. The patient has no skin changes for which she can note. She has no history of trauma of infection of the breast. The patient drinks approximately one cup of coffee per day. She does not drink pop. She does not smoke. She is not exposed to secondhand smoke. She does not eat chocolate on a regular basis. Family history: 1.paternal grandmother: of breast cancer Hormonal History: Menarche: 14 M1, breast fed: yes, first at 19 periods: Menopausal at 42, premature stress-induced menopause BCP: none hormones: none Surgical history: 1. Cholcystectomy 2. Bilary duct shunt; so patient not to have an MRI 3. pancreatitis related to gallstones 4. was admited for 6 months with complications related to gallbladder, she had multiple episodes of pancreatitis, and coded several times Medical history: 1.lupus 2. diabetes (told needed pancreatic transplant after the pancreatitis related to the gallstones) 3. 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 She is unable to take insulin and therefore diabetic control is more difficult. She follows with an spray foam installer Dr. Tierney for this. - Genitourinary (Female) Genitourinary: Denies dysuria, Denies hematuria - Menstruation Menstruation: Reports postmenopausal - Musculoskeletal Comment: arthritis osteo - Integumentary Integumentary: Denies pruritus, Denies rash - Neurological Neurological: Denies numbness, Denies weakness - Psychiatric Psychiatric: Denies anxiety, Denies depression - Endocrine Comment: diabetes - Hematologic/Lymphatic Comment: none - Allergic/Immunologic Allergic/Immunologic: Reports as per HPI Past Medical History Past Medical History: Diabetes Mellitus Additional Past Medical History / Comment(s): lupus, pancreatitis, cardiac arrythmia (unknown) History of Any Multi-Drug Resistant Organisms: None Reported Past Surgical History: Cholecystectomy Additional Past Surgical History / Comment(s): shunt for gallstones Past Anesthesia/Blood Transfusion Reactions: No Reported Reaction Past Psychological History: No Psychological Hx Reported Smoking Status: Former smoker Past Alcohol Use History: None Reported Past Drug Use History: None Reported - Past Family History Father Family Medical History: Congestive Heart Failure (CHF), Diabetes Mellitus Additional Family Medical History / Comment(s): cabg Mother Family Medical History: Congestive Heart Failure (CHF), CVA/TIA, Myocardial Infarction ([place]) Medications and Allergies Home Medications Medication Instructions Recorded Confirmed Type metFORMIN HCL [Glucophage] 500 mg PO AC-BRKFST 04/14/15 09/27/18 History Liraglutide [Victoza 3-Bharat] 1.8 mg SQ HS 11/04/17 09/27/18 History metFORMIN HCL 1,000 mg PO AC-BID 11/04/17 09/27/18 History Insulin Degludec [Tresiba] 0 units SQ DAILY 09/27/18 09/27/18 History Allergies Allergy/AdvReac Type Severity Reaction Status Date / Time ciprofloxacin [From Cipro] Allergy Anaphylaxis Verified 09/27/18 16:11 insulin detemir Allergy Dyspnea Verified 09/27/18 16:11 insulin glargine Allergy Dyspnea Verified 09/27/18 16:11 meperidine HCl [From Demerol] Allergy Unknown Verified 09/27/18 16:11 Sulfa (Sulfonamide Allergy Unknown Verified 09/27/18 16:11 Antibiotics) Surgical - Exam Vital Signs Temp Pulse Resp BP Pulse Ox 97.4 F L 67 18 106/71 100 09/27/18 16:08 09/27/18 16:08 09/27/18 16:08 09/27/18 16:08 09/27/18 16:08 - General well developed, well nourished, no distress - Eyes normal ocular movement - ENT no hearing loss, no congestion - Neck no masses, trachea midline - Respiratory normal respiratory effort, clear to auscultation - Cardiovascular Rhythm: regular Heart Sounds: normal: S1, S2 - Abdomen Abdomen: soft, non tender, no guarding, no rigid, no rebound - Integumentary normal turgor - Neurologic no disoriented, no combative - Musculoskeletal normal gait, normal posture - Psychiatric oriented to time, oriented to person, oriented to place, speech is normal, memory intact Breast examination: Breasts: Multi-positional exam fibrocystic changes no discrete dominant masses or nodules of concern, and the subcutaneous tissue that appeared to be lipomatous like changes which are tender to palpation Right axilla: No adenopathy of concern left breast: Multiple positional exam fibrocystic changes no discrete dominant intraparenchymal masses however in the subcutaneous tissue there again appeared to be lipomatous like changes which are tender to palpation Left axilla: No adenopathy of concern Results Mammogram and ultrasound results reviewed Assessment and Plan Assessment: Impression: 1. Diabetes 2. Arthritis 3. lupus 4. Fibrocystic breast changes 5. Mastodynia 6. No evidence of breast cancer at this time Plan: 1. Persistent subcutaneous chest wall pain/nodularity to palpation 2. Medical management of medical conditions 3. Consider rheumatology consultation 4. Patient has an appointment with dermatology at [facility] 5. At this time there is nothing in the breast biopsy 6. Repeat left breast mammogram in 6 months time with physician exam at that time CC: Dr. Ch
== END | disposition home or self-care (01) ==
LOC: WWCWWP 15:53
PROVIDERS: ATTEND Surgery
DX: Z53.9 Procedure and treatment not carried out, unspecified reason (principal)

== ENCOUNTER → 2019-03-26 | Outpatient (CLI) | payer OTHER ==
--- NOTE | 2019-03-26 13:24 | CT ---
EXAMINATION TYPE: CT shoulder LT wo con DATE OF EXAM: 03/26/2019 COMPARISON: Outside left shoulder x-ray 6 days ago HISTORY: Left shoulder has been dislocated 4 times. Most recent was posterior dislocation -2018. Halina n and decreased range of motion since. CT DLP: 396 mGycm Automated exposure control for dose reduction was used. FINDINGS: The acromioclavicular joint shows moderate to severe narrowing with gas in joist space which is nonsp ecific. There is mild to moderate spurring and mild capsular hypertrophy. Some effacement of underlyi ng fat plane is felt present. Distal acromion morphology is unremarkable. Glenohumeral joint is maintained with mild narrowing and spurring. No significant glenoid version. No Hill-Sachs type deformity identified. No osseous Bankart type lesion involving the anterior-inferior glenoid. Glenoid grossly intact. No significant joint effusion. Rotator cuff muscle bulk is preserved. Visualized ribs are intact. Visualized left lung is clear. No suspicious axillary adenopathy. IMPRESSION: As above.
== END | disposition home or self-care (01) ==
LOC: RADCTMAIN 11:32
PROVIDERS: ATTEND Orthopaedic Surgery
DX: M75.82 Other shoulder lesions, left shoulder (principal); Z88.1 Allergy status to other antibiotic agents; Z88.2 Allergy status to sulfonamides; Z88.8 Allergy status to other drugs, medicaments and biological substances; Z88.5 Allergy status to narcotic agent

== ENCOUNTER 2019-07-29 10:11 | Inpatient (IN) | payer OTHER ==
[2019-07-29] MEDS ORDERED: MORPHINE SULFATE 4 MG/ML SYRINGE IV STA (10:53)
[2019-07-29] MEDS ORDERED: PIPERACILLIN-TAZOBACTAM 3.375 GM in SODIUM CHLORIDE 0.9% 100 ML IVPB STA (10:55)
[2019-07-29] MEDS ORDERED: VANCOMYCIN IV PER PHARMACY 1 EACH MISC MISCELLANE PRN (10:55)
--- NOTE | 2019-07-29 10:59 | ED ---
General Adult HPI - General Chief complaint: Skin/Abscess/Foreign Body Stated complaint: Abcess Time Seen by Provider: 07/29/19 10:32 Source: patient, RN notes reviewed, old records reviewed Mode of arrival: wheelchair Limitations: no limitations - History of Present Illness Initial comments: This Patient is a 40-year-old female presents emergency department today for evaluation for a posterior neck and scalp abscess. She reports that she started to have symptoms towards the end of last week. She was seen at [facility] on Sunday and was placed on antibiotics. She reports that that time she also had an incision and drainage and pus was removed. She does not know if the culture was completed. Patient states that she's been taking the antibiotic of clindamycin since Sunday. She states that she "doesn't feel right". She reports that the redness and swelling is now spreading towards the anterior chest wall and towards her neck. Patient states that she has no chest pain or shortness of breath. She has a diabetic, history of lupus. Patient states that she is hyper concerned of catching Covid. Patient states that she has been having fevers related to this cellulitis and neck abscess and has been taking Tylenol and Motrin. - Related Data Home Medications Medication Instructions Recorded Confirmed Liraglutide [Victoza 3-Bharat] 1.8 mg SQ HS 11/04/17 07/29/19 metFORMIN HCL 1,000 mg PO BID 11/04/17 07/29/19 Clindamycin HCl 300 mg PO TID 07/29/19 07/29/19 Ertugliflozin Pidolate [Steglatro] 15 mg PO QAM 07/29/19 07/29/19 HYDROcodone/APAP 7.5-325MG [[place] 1 tab PO BID 07/29/19 07/29/19 7.5-325] Pioglitazone [Actos] 15 mg PO QAM 07/29/19 07/29/19 Allergies Allergy/AdvReac Type Severity Reaction Status Date / Time ciprofloxacin [From Cipro] Allergy Anaphylaxis Verified 07/29/19 11:48 insulin detemir Allergy Dyspnea Verified 07/29/19 11:48 insulin glargine Allergy Dyspnea Verified 07/29/19 11:48 meperidine HCl [From Demerol] Allergy Unknown Verified 07/29/19 11:48 Sulfa (Sulfonamide Allergy Unknown Verified 07/29/19 11:48 Antibiotics) Review of Systems ROS Statement: Those systems with pertinent positive or pertinent negative responses have been documented in the HPI. ROS Other: All systems not noted in ROS Statement are negative. Past Medical History Past Medical History: Diabetes Mellitus Additional Past Medical History / Comment(s): lupus, pancreatitis, cardiac arrythmia (unknown) History of Any Multi-Drug Resistant Organisms: None Reported Past Surgical History: Cholecystectomy Additional Past Surgical History / Comment(s): shunt for gallstones, frozen shoulder surgery Past Anesthesia/Blood Transfusion Reactions: No Reported Reaction Past Psychological History: No Psychological Hx Reported Smoking Status: Former smoker Past Alcohol Use History: None Reported Past Drug Use History: None Reported - Past Family History Father Family Medical History: Congestive Heart Failure (CHF), Diabetes Mellitus Additional Family Medical History / Comment(s): cabg Mother Family Medical History: Congestive Heart Failure (CHF), CVA/TIA, Myocardial Infarction ([place]) General Exam - General Exam Comments Initial Comments: 48-year-old female. Alert and oriented 3. Patient appears in moderate discomfort. Limitations: no limitations General appearance: alert, in no apparent distress Head exam: Present: atraumatic, normocephalic, normal inspection Eye exam: Present: normal appearance, PERRL, EOMI. Absent: scleral icterus, conjunctival injection, periorbital swelling ENT exam: Present: normal exam, mucous membranes moist Neck exam: Present: normal inspection, full ROM, other (Patient has evidence of a 4 cm x 4 cm abscess over the right posterior aspect of her neck with an open wound with some purulent drainage from the site. There is surrounding cellulitis extending to the anterior aspect of the neck.). Absent: tenderness, meningismus, lymphadenopathy Respiratory exam: Present: normal lung sounds bilaterally Cardiovascular Exam: Present: regular rate, normal rhythm, normal heart sounds. Absent: systolic murmur, diastolic murmur, rubs, gallop, clicks GI/Abdominal exam: Present: soft, normal bowel sounds. Absent: distended, tenderness, guarding, rebound, rigid Back exam: Present: normal inspection Neurological exam: Present: alert, oriented X3, CN II-XII intact Psychiatric exam: Present: normal affect, normal mood Skin exam: Present: warm, dry, intact, normal color. Absent: rash Course Vital Signs 07/29/19 10:22 Temperature 97.6 F Pulse Rate 78 Respiratory 18 Rate Blood Pressure 110/75 O2 Sat by Pulse 99 Oximetry Medical Decision Making - Medical Decision Making Patient's a 48-year-old female, history of diabetes and lupus. She presents emergency department today for failed outpatient treatment over posterior neck abscess. This was incised and drained at [facility] on Sunday. She is taking clindamycin and presents with worsening swelling and pain. At this time patient's labs are reviewed. She does have elevated glucose at this time with 400. We'll put Patient on insulin sliding scale. She also has an elevated CRP of 156. This could also be related to history of lupus. At this t sidra Patient was started on Zosyn and vancomycin for concern for resistant skin infection. She refused further opening of the wound at this time. Culture and sensitivity was requested from [facility]. I discussed the case with Dr. Burton who discussed case with Dr. Mcadams. - Lab Data Result diagrams: 07/29/19 11:20 07/29/19 11:20 Lab Results 07/29/19 07/29/19 07/29/19 Range/Units 11:20 11:20 11:20 WBC 9.4 (3.8-10.6) k/uL RBC 4.53 (3.80-5.40) m/uL Hgb 13.9 (11.4-16.0) gm/dL Hct 44.4 (34.0-46.0) % MCV 98.0 (80.0-100.0) fL MCH 30.6 (25.0-35.0) pg MCHC 31.3 (31.0-37.0) g/dL RDW 12.6 (11.5-15.5) % Plt Count 270 (150-450) k/uL Neutrophils % 72 % Lymphocytes % 17 % Monocytes % 4 % Eosinophils % 5 % Basophils % 0 % Neutrophils # 6.7 (1.3-7.7) k/uL Lymphocytes # 1.6 (1.0-4.8) k/uL Monocytes # 0.4 (0-1.0) k/uL Eosinophils # 0.5 (0-0.7) k/uL Basophils # 0.0 (0-0.2) k/uL Sodium 134 L (137-145) mmol/L Potassium 4.2 (3.5-5.1) mmol/L Chloride 99 (98-107) mmol/L Carbon Dioxide 26 (22-30) mmol/L Anion Gap 9 mmol/L BUN 15 (7-17) mg/dL Creatinine 0.76 (0.52-1.04) mg/dL Est GFR (CKD-EPI)AfAm >90 (>60 ml/min/1.73 sqM) Est GFR (CKD-EPI)NonAf >90 (>60 ml/min/1.73 sqM) Glucose 440 H (74-99) mg/dL Plasma Lactic Acid Lalo 1.4 (0.7-2.0) mmol/L Calcium 9.6 (8.4-10.2) mg/dL Total Bilirubin 0.4 (0.2-1.3) mg/dL AST 21 (14-36) U/L ALT 20 (4-34) U/L Alkaline Phosphatase 97 (38-126) U/L C-Reactive Protein 176.5 H (<10.0) mg/L Total Protein 7.0 (6.3-8.2) g/dL Albumin 4.0 (3.5-5.0) g/dL Disposition Clinical Impression: Neck abscess, Failure of outpatient treatment, Elevated C-reactive protein, Diabetes Disposition: ADMITTED IP TO THIS HOSP Condition: Good Is patient prescribed a controlled substance at d/c from ED?: No Referrals: Gloria Ch MD [Primary Care Provider] - 1-2 days Time of Disposition: 12:55
[2019-07-29] MEDS ORDERED: VANCOMYCIN 1,500 MG in SODIUM CHLORIDE 0.9% 250 ML IVPB ONE (11:30)
[2019-07-29 11:42] LABS: Basophils % (A) 0 %; Eosinophils # (A) 0.5 k/uL (0-0.7); Eosinophils % (A) 5 %; HCT 44.4 % (34.0-46.0); HGB 13.9 gm/dL (11.4-16.0); Lymphocytes # (A) 1.6 k/uL (1.0-4.8); Lymphocytes % (A) 17 %; MCH 30.6 pg (25.0-35.0); MCHC 31.3 g/dL (31.0-37.0); Mean Platelet Volume 9.2; Monocytes # (A) 0.4 k/uL (0-1.0); Monocytes % (A) 4 %; Neutrophils # (A) 6.7 k/uL (1.3-7.7); Neutrophils % (A) 72 %; Platelet Count 270 k/uL (150-450); RBC 4.53 m/uL (3.80-5.40); RDW 12.6 % (11.5-15.5); WBC 9.4 k/uL (3.8-10.6)
[2019-07-29 11:55] LABS: ALT 20 U/L (4-34); AST 21 U/L (14-36); African American GFR (CKD) >90 (>60 ml/min/1.73 sqM); Alkaline Phosphatase 97 U/L (38-126); Anion Gap 9 mmol/L; Blood Urea Nitrogen 15 mg/dL (7-17); Calcium 9.6 mg/dL (8.4-10.2); Carbon Dioxide 26 mmol/L (22-30); Chloride 99 mmol/L (98-107); Glucose 440 mg/dL (74-99); Non-African American GFR(CKD) >90 (>60 ml/min/1.73 sqM); Potassium 4.2 mmol/L (3.5-5.1); Sodium 134 mmol/L (137-145); Total Bilirubin 0.4 mg/dL (0.2-1.3)
[2019-07-29] MEDS ORDERED: ONDANSETRON 4 MG/2 ML VIAL IVP STA (11:57)
[2019-07-29 12:20] LABS: C Reactive Protein 176.5 mg/L (<10.0)
[2019-07-29] MEDS ORDERED: HYDROmorphone 1 MG/ML 1 ML SYRINGE IVP STA (12:52)
[2019-07-29] MEDS ORDERED: KETOROLAC 30 MG/ML 1 ML VIAL IVP STA (12:52)
[2019-07-29] MEDS ORDERED: ONDANSETRON 4 MG/2 ML VIAL IVP PRN (12:56)
[2019-07-29] MEDS ORDERED: IBUPROFEN 400 MG TAB PO PRN (12:56)
[2019-07-29] MEDS ORDERED: HYDROmorphone 1 MG/ML 1 ML SYRINGE IVP PRN (12:56)
[2019-07-29] MEDS ORDERED: HYDROmorphone 0.5 MG/0.5 ML SYRINGE IVP PRN (12:56)
[2019-07-29] MEDS ORDERED: LORazepam 2 MG/ML INJ IV PRN (12:56)
[2019-07-29] MEDS ORDERED: NALOXONE 0.4 MG/ML 1 ML VIAL IV PRN (12:56)
[2019-07-29] MEDS: SODIUM CHLORIDE 0.9% 1,000 ML IV SCH ×2 (13:30→19:27)
[2019-07-29 17:10] LABS: Glucose,Whole Blood 228 mg/dL (75-99)
[2019-07-29] MEDS: metFORMIN 500 MG TAB PO SCH (17:21)
[2019-07-29] MEDS: KETOROLAC 30 MG/ML 1 ML VIAL IVP PRN ×2 (17:23→23:48)
[2019-07-29] MEDS: PIPERACILLIN-TAZOBACTAM 3.375 GM in SODIUM CHLORIDE 0.9% 100 ML IVPB SCH (19:27)
[2019-07-29] MEDS: ACETAMINOPHEN TAB 325 MG TAB PO PRN (19:27)
[2019-07-29] MEDS ORDERED: ACETAMINOPHEN IV (For NPO) 1,000 MG in EMPTY BAG 1 BAG IVPB STA (19:30)
--- NOTE | 2019-07-29 19:43 | P.HPIM ---
History of Present Illness H&P Date: 07/29/19 Christie Garcia is a 48-year-old female who presented to [facility] emergency room with severe pain and tenderness in back of her neck, patient states that she went with similar complaint twice to [facility] emergency room, on the first visit she was given an oral antibiotic for cellulitis, on the second visit she was told that she have an abscess and the emergency room physician performed incision and drainage, she was discharged home on the same oral antibiotic, she comes in today with severe pain and tenderness in her neck she was evaluated in the emergency room she was started on IV antibiotic Zosyn and vancomycin and was admitted to medical floor, surgical consultation and infectious disease consultation were requested. Patient has a known history of diabetes Mellitus, she also has a previous history of pancreatitis, she stated that she was diagnosed with lupus in the past. She states that she used to smoke, but is not a current smoker at this time. Past Medical History Past Medical History: Diabetes Mellitus Additional Past Medical History / Comment(s): lupus, pancreatitis, cardiac arr ythmia (unknown) History of Any Multi-Drug Resistant Organisms: None Reported Past Surgical History: Cholecystectomy Additional Past Surgical History / Comment(s): shunt for gallstones, frozen shoulder surgery Past Anesthesia/Blood Transfusion Reactions: No Reported Reaction Past Psychological History: No Psychological Hx Reported Smoking Status: Former smoker Past Alcohol Use History: None Reported Past Drug Use History: None Reported - Past Family History Father Family Medical History: Congestive Heart Failure (CHF), Diabetes Mellitus Additional Family Medical History / Comment(s): cabg Mother Family Medical History: Congestive Heart Failure (CHF), CVA/TIA, Myocardial Infarction ([place]) Medications and Allergies Home Medications Medication Instructions Recorded Confirmed Type Liraglutide [Victoza 3-Bharat] 1.8 mg SQ HS 11/04/17 07/29/19 History metFORMIN HCL 1,000 mg PO BID 11/04/17 07/29/19 History Clindamycin HCl 300 mg PO TID 07/29/19 07/29/19 History Ertugliflozin Pidolate [Steglatro] 15 mg PO QAM 07/29/19 07/29/19 History HYDROcodone/APAP 7.5-325MG [[place] 1 tab PO BID 07/29/19 07/29/19 History 7.5-325] Pioglitazone [Actos] 15 mg PO QAM 07/29/19 07/29/19 History Allergies Allergy/AdvReac Type Severity Reaction Status Date / Time ciprofloxacin [From Cipro] Allergy Anaphylaxis Verified 07/29/19 11:48 insulin detemir Allergy Dyspnea Verified 07/29/19 11:48 insulin glargine Allergy Dyspnea Verified 07/29/19 11:48 meperidine HCl [From Demerol] Allergy Unknown Verified 07/29/19 11:48 Sulfa (Sulfonamide Allergy Unknown Verified 07/29/19 11:48 Antibiotics) Physical Exam Vitals: Vital Signs Temp Pulse Pulse Resp BP BP Pulse Ox 07/29/19 16:40 81 07/29/19 15:10 98.3 F 78 20 141/65 99 07/29/19 15:00 97.8 F 81 16 123/79 96 07/29/19 13:07 98.1 F 77 20 130/72 99 07/29/19 10:22 97.6 F 78 18 110/75 99 Intake and Output 07/29/19 07/29/19 07/29/19 06:59 14:59 22:59 Other: Weight 90.718 kg In general patient is alert and oriented in mild distress due to nausea and headache HEENT head normocephalic and atraumatic Neck is supple no JVD no goiter no lymphadenopathy, there is induration and erythema in the posterior aspect of the upper back with severe tenderness Chest exam reveals a few scattered rhonchi no wheezing Cardiac exam reveals regular heart sounds S1 and S2 no gallops no murmurs Abdomen is soft nontender no organomegaly with normal bowel sounds Extremity exam reveals no edema no cyanosis or clubbing Neurological examination reveals no gross focal deficit Results CBC & Chem 7: 07/29/19 11:20 07/29/19 11:20 Labs: Abnormal Lab Results - Last 24 Hours (Table) 07/29/19 07/29/19 Range/Units 11:20 17:05 Sodium 134 L (137-145) mmol/L Glucose 440 H (74-99) mg/dL POC Glucose (mg/dL) 228 H (75-99) mg/dL C-Reactive Protein 176.5 H (<10.0) mg/L Microbiology - Last 24 Hours (Table) 07/29/19 11:20 Gram Stain - Preliminary Neck Wound Culture - Preliminary Thrombosis Risk Factor Assmnt - Choose All That Apply Each Factor Represents 1 point: Age 41-60 years, Obesity (BMI >25) Thrombosis Risk Factor Assessment Total Risk Factor Score: 2 Thrombosis Risk Factor Assessment Level: Low Risk Assessment and Plan Plan: 1. Posterior neck abscess, with incision and drainage [address] [facility] emergency room, patient was maintained on oral clindamycin however her symptoms continued to worsen. Currently she is admitted to medical floor and was started on IV Zosyn and IV vancomycin. 2. Underlying history of diabetes mellitus will check hemoglobin A1c continue home medications and cover with insulin sliding scale 3. Pain management for headache and neck pain, patient is having severe nausea at this time could be related to Dilaudid, will discontinue, and try IV morphine 4 mg every 4 hours when necessary 4. For nausea and vomiting patient will be given Zofran 4 mg IV every 6 hours when necessary Will follow during this admission please see orders
[2019-07-29 20:13] LABS: Glucose,Whole Blood 309 mg/dL (75-99)
[2019-07-29] MEDS: HYDROcodone/APAP 7.5-325MG 1 EACH TAB PO SCH (21:16)
[2019-07-29] MEDS: NON FORMULARY DRUG (Liraglutide [Victoza 3-Pak] 1.8 MG) SQ SCH (21:22)
[2019-07-29] MEDS: ONDANSETRON 4 MG/2 ML VIAL IVP PRN (21:28)
[2019-07-29] MEDS: MORPHINE SULFATE 4 MG/ML SYRINGE IVP PRN (21:33)
[2019-07-29] MEDS: VANCOMYCIN 1,500 MG in SODIUM CHLORIDE 0.9% 250 ML IVPB SCH (23:49)
[2019-07-30] MEDS: ONDANSETRON 4 MG/2 ML VIAL IVP PRN ×4 (03:15→23:44)
[2019-07-30] MEDS: MORPHINE SULFATE 4 MG/ML SYRINGE IVP PRN ×3 (03:15→21:58)
[2019-07-30] MEDS: PIPERACILLIN-TAZOBACTAM 3.375 GM in SODIUM CHLORIDE 0.9% 100 ML IVPB SCH ×3 (03:16→19:26)
[2019-07-30 07:01] LABS: Glucose,Whole Blood 265 mg/dL (75-99)
[2019-07-30] MEDS: KETOROLAC 30 MG/ML 1 ML VIAL IVP PRN ×2 (07:25→15:01)
[2019-07-30] MEDS ORDERED: METOCLOPRAMIDE 5 MG/ML 2 ML VIAL IVP PRN (07:27)
--- NOTE | 2019-07-30 08:54 | P.GSCN ---
<Dee Dee Cisse - Last Filed: 07/30/19 08:48> History of Present Illness Consult date: 07/30/19 Reason for Consult: neck abscess Requesting physician: Ashvin Vidal History of present illness: CHIEF COMPLAINT: Neck abscess HISTORY OF PRESENT ILLNESS: 48-year-old female presented to the emergency room chief complaint a neck abscess. Patient states she was evaluated twice at [facility]. The first time she was discharged from the emergency room with oral antibiotics. The second time she underwent a bedside incision and drainage by the ER physician and discharged home. Patient states the area has continued to get more painful and tender. She reports purulent drainage. Cultu res are positive for staph aureus. PAST MEDICAL HISTORY: See list. PAST SURGICAL HISTORY: See list. SOCIAL HISTORY: No illicit drug use. REVIEW OF SYSTEMS: CONSTITUTIONAL: Denies fever or chills. HEENT: Denies blurred vision, vision changes, or eye pain. Denies hemoptysis CARDIOVASCULAR: Denies chest pain or pressure. RESPIRATORY: No shortness of breath. GASTROINTESTINAL: Denies abdominal pain. Denies nausea vomiting HEMATOLOGIC: Denies bleeding disorders. GENITOURINARY: Denies any blood in urine. SKIN: Reports wound to neck. Denies pruitis. Denies rash. PHYSICAL EXAM: VITAL SIGNS: Reviewed. GENERAL: Well-developed in no acute distress. HEENT: No sclera icterus. Extraocular movements grossly intact. Moist buccal mucosa. Head is atraumatic, normocephalic. ABDOMEN: Soft. Nondistended. Nontender. NEUROLOGIC: Alert and oriented. Cranial nerves II through XII grossly intact. SKIN: Patient with evidence of abscess to posterior neck. Small dime sized open wound with purulent drainage. Surrounding erythema and induration. No obvious palpable fluid collection. LABORATORY DATA: WBC 9.4. Hemoglobin 13.9. Platelet count 270. ASSESSMENT: 1. Neck abscess 2. Uncontrolled diabetes mellitus with hyperglycemia PLAN: -Recommend tight glucose control for optimal wound healing -Continue IV antibiotics -Await wound cultures -NPO -Patient tentatively scheduled for incision and drainage of neck abscess today with Dr. Vidal. She will be reevaluated today by Dr. Vidal and final decision will be made regarding surgical intervention. Nurse practitioner note has been reviewed by physician. Signing provider agrees with the documented findings, assessment, and plan of care. Past Medical History Past Medical History: Diabetes Mellitus Additional Past Medical History / Comment(s): lupus, pancreatitis, cardiac arrythmia (unknown) History of Any Multi-Drug Resistant Organisms: None Reported Past Surgical History: Cholecystectomy Additional Past Surgical History / Comment(s): shunt for gallstones, frozen shoulder surgery Past Anesthesia/Blood Transfusion Reactions: No Reported Reaction Past Psychological History: No Psychological Hx Reported Smoking Status: Former smoker Past Alcohol Use History: None Reported Past Drug Use History: None Reported - Past Family History Father Family Medical History: Congestive Heart Failure (CHF), Diabetes Mellitus Additional Family Medical History / Comment(s): cabg Mother Family Medical History: Congestive Heart Failure (CHF), CVA/TIA, Myocardial Infarction ([place]) Medications and Allergies Home Medications Medication Instructions Recorded Confirmed Type Liraglutide [Victoza 3-Bharat] 1.8 mg SQ HS 11/04/17 07/29/19 History metFORMIN HCL 1,000 mg PO BID 11/04/17 07/29/19 History Clindamycin HCl 300 mg PO TID 07/29/19 07/29/19 History Ertugliflozin Pidolate [Steglatro] 15 mg PO QAM 07/29/19 07/29/19 History HYDROcodone/APAP 7.5-325MG [[place] 1 tab PO BID 07/29/19 07/29/19 History 7.5-325] Pioglitazone [Actos] 15 mg PO QAM 07/29/19 07/29/19 History Allergies Allergy/AdvReac Type Severity Reaction Status Date / Time ciprofloxacin [From Cipro] Allergy Anaphylaxis Verified 07/29/19 11:48 insulin detemir Allergy Dyspnea Verified 07/29/19 11:48 insulin glargine Allergy Dyspnea Verified 07/29/19 11:48 meperidine HCl [From Demerol] Allergy Unknown Verified 07/29/19 11:48 Sulfa (Sulfonamide Allergy Unknown Verified 07/29/19 11:48 Antibiotics) Surgical - Exam Vital Signs Temp Pulse Resp BP Pulse Ox 97.6 F 78 18 110/75 99 07/29/19 10:22 07/29/19 10:22 07/29/19 10:22 07/29/19 10:22 07/29/19 10:22 Results - Labs 07/29/19 11:20 07/29/19 11:20 Abnormal Lab Results - Last 24 Hours (Table) 07/29/19 07/29/19 07/29/19 Range/Units 11:20 17:05 20:09 Sodium 134 L (137-145) mmol/L Glucose 440 H (74-99) mg/dL POC Glucose (mg/dL) 228 H 309 H (75-99) mg/dL C-Reactive Protein 176.5 H (<10.0) mg/L 07/30/19 Range/Units 06:57 Sodium (137-145) mmol/L Glucose (74-99) mg/dL POC Glucose (mg/dL) 265 H (75-99) mg/dL C-Reactive Protein (<10.0) mg/L Microbiology - Last 24 Hours (Table) 07/29/19 11:20 Gram Stain - Preliminary Neck Wound Culture - Preliminary Presumptive Staph aureus Diabetes panel 07/29/19 Range/Units 11:20 Sodium 134 L (137-145) mmol/L Potassium 4.2 (3.5-5.1) mmol/L Chloride 99 (98-107) mmol/L Carbon Dioxide 26 (22-30) mmol/L BUN 15 (7-17) mg/dL Creatinine 0.76 (0.52-1.04) mg/dL Glucose 440 H (74-99) mg/dL Calcium 9.6 (8.4-10.2) mg/dL AST 21 (14-36) U/L ALT 20 (4-34) U/L Alkaline Phosphatase 97 (38-126) U/L Total Protein 7.0 (6.3-8.2) g/dL Albumin 4.0 (3.5-5.0) g/dL Calcium panel 07/29/19 Range/Units 11:20 Calcium 9.6 (8.4-10.2) mg/dL Albumin 4.0 (3.5-5.0) g/dL Pituitary panel 07/29/19 Range/Units 11:20 Sodium 134 L (137-145) mmol/L Potassium 4.2 (3.5-5.1) mmol/L Chloride 99 (98-107) mmol/L Carbon Dioxide 26 (22-30) mmol/L BUN 15 (7-17) mg/dL Creatinine 0.76 (0.52-1.04) mg/dL Glucose 440 H (74-99) mg/dL Calcium 9.6 (8.4-10.2) mg/dL Adrenal panel 07/29/19 Range/Units 11:20 Sodium 134 L (137-145) mmol/L Potassium 4.2 (3.5-5.1) mmol/L Chloride 99 (98-107) mmol/L Carbon Dioxide 26 (22-30) mmol/L BUN 15 (7-17) mg/dL Creatinine 0.76 (0.52-1.04) mg/dL Glucose 440 H (74-99) mg/dL Calcium 9.6 (8.4-10.2) mg/dL Total Bilirubin 0.4 (0.2-1.3) mg/dL AST 21 (14-36) U/L ALT 20 (4-34) U/L Alkaline Phosphatase 97 (38-126) U/L Total Protein 7.0 (6.3-8.2) g/dL Albumin 4.0 (3.5-5.0) g/dL <Ashvin Vidal - Last Filed: 07/30/19 10:50> History of Present Illness History of present illness: As above. Patient with draining abscess site right posterior neck. This was lanced at [facility]. Was getting worse. Better today. Much less tender at this time. She is able to palpate without significant pain. On exam the patient has a 1 cm incision draining purulent fluid. I was able to express approximately 20-30 mL of purulent fluid particulate from the right anterior location where there is a small area of fluctuance measuring 2 x 2 cm. I was then able to irrigate with saline through a syringe with return of clearer fluid. Patient is not interested in further incision and drainage at this point. I think this likely will do okay with just local wound care and IV antibiotics. We'll monitor closely with you. May shower 1-2 times daily. Discussed with nurse to irrigate 2-3 times per day with saline and packed with a thin quarter inch or so packing gauze after irrigation. Surgical - Exam Vital Signs Temp Pulse Resp BP Pulse Ox 97.6 F 78 18 110/75 99 07/29/19 10:22 07/29/19 10:22 07/29/19 10:22 07/29/19 10:22 07/29/19 10:22 Results - Labs 07/29/19 11:20 07/29/19 11:20 Abnormal Lab Results - Last 24 Hours (Table) 07/29/19 07/29/19 07/29/19 Range/Units 11:20 17:05 20:09 Sodium 134 L (137-145) mmol/L Glucose 440 H (74-99) mg/dL POC Glucose (mg/dL) 228 H 309 H (75-99) mg/dL C-Reactive Protein 176.5 H (<10.0) mg/L 07/30/19 Range/Units 06:57 Sodium (137-145) mmol/L Glucose (74-99) mg/dL POC Glucose (mg/dL) 265 H (75-99) mg/dL C-Reactive Protein (<10.0) mg/L Microbiology - Last 24 Hours (Table) 07/29/19 11:20 Gram Stain - Preliminary Neck Wound Culture - Preliminary Presumptive Staph aureus Diabetes panel 07/29/19 Range/Units 11:20 Sodium 134 L (137-145) mmol/L Potassium 4.2 (3.5-5.1) mmol/L Chloride 99 (98-107) mmol/L Carbon Dioxide 26 (22-30) mmol/L BUN 15 (7-17) mg/dL Creatinine 0.76 (0.52-1.04) mg/dL Glucose 440 H (74-99) mg/dL Calcium 9.6 (8.4-10.2) mg/dL AST 21 (14-36) U/L ALT 20 (4-34) U/L Alkaline Phosphatase 97 (38-126) U/L Total Protein 7.0 (6.3-8.2) g/dL Albumin 4.0 (3.5-5.0) g/dL Calcium panel 07/29/19 Range/Units 11:20 Calcium 9.6 (8.4-10.2) mg/dL Albumin 4.0 (3.5-5.0) g/dL Pituitary panel 07/29/19 Range/Units 11:20 Sodium 134 L (137-145) mmol/L Potassium 4.2 (3.5-5.1) mmol/L Chloride 99 (98-107) mmol/L Carbon Dioxide 26 (22-30) mmol/L BUN 15 (7-17) mg/dL Creatinine 0.76 (0.52-1.04) mg/dL Glucose 440 H (74-99) mg/dL Calcium 9.6 (8.4-10.2) mg/dL Adrenal panel 07/29/19 Range/Units 11:20 Sodium 134 L (137-145) mmol/L Potassium 4.2 (3.5-5.1) mmol/L Chloride 99 (98-107) mmol/L Carbon Dioxide 26 (22-30) mmol/L BUN 15 (7-17) mg/dL Creatinine 0.76 (0.52-1.04) mg/dL Glucose 440 H (74-99) mg/dL Calcium 9.6 (8.4-10.2) mg/dL Total Bilirubin 0.4 (0.2-1.3) mg/dL AST 21 (14-36) U/L ALT 20 (4-34) U/L Alkaline Phosphatase 97 (38-126) U/L Total Protein 7.0 (6.3-8.2) g/dL Albumin 4.0 (3.5-5.0) g/dL
[2019-07-30] MEDS: NICOTINE 14MG/24HR PATCH TRANSDERM SCH (09:16)
[2019-07-30] MEDS: NON FORMULARY DRUG (Ertugliflozin Pidolate [Steglatro] 15 MG) PO SCH (09:16)
[2019-07-30] MEDS: metFORMIN 500 MG TAB PO SCH ×2 (09:21→17:47)
[2019-07-30] MEDS: PANTOPRAZOLE 40 MG/10 ML VIAL IV SCH (09:22)
[2019-07-30] MEDS: PIOGLITAZONE 15 MG TAB PO SCH (09:22)
[2019-07-30] MEDS: HYDROcodone/APAP 7.5-325MG 1 EACH TAB PO SCH ×2 (09:22→21:06)
[2019-07-30 11:35] LABS: Glucose,Whole Blood 342 mg/dL (75-99)
[2019-07-30] MEDS: ACETAMINOPHEN TAB 325 MG TAB PO PRN ×2 (12:21→17:47)
[2019-07-30] MEDS: VANCOMYCIN 1,500 MG in SODIUM CHLORIDE 0.9% 250 ML IVPB SCH ×2 (12:22→23:21)
[2019-07-30] MEDS: SODIUM CHLORIDE 0.9% 1,000 ML IV SCH ×2 (13:04→19:27)
[2019-07-30 16:23] LABS: Glucose,Whole Blood 282 mg/dL (75-99)
--- NOTE | 2019-07-30 17:56 | P.PN ---
Subjective Progress Note Date: 07/30/19 Christie Garcia is a 48-year-old female who presented to [facility] emergency room with severe pain and tenderness in back of her neck, patient states that she went with similar complaint twice to [facility] emergency room, on the first visit she was given an oral antibiotic for cellulitis, on the second visit she was told that she have an abscess and the emergency room physician performed incision and drainage, she was discharged home on the same oral antibiotic, she comes in today with severe pain and tenderness in her neck she was evaluated in the emergency room she was started on IV antibiotic Zosyn and vancomycin and was admitted to medical floor, surgical consultation and infectious disease consultation were requested. Patient has a known history of diabetes Mellitus, she also has a previous history of pancreatitis, she stated that she was diagnosed with lupus in the past. She states that she used to smoke, but is not a current smoker at this time. On 07/30/2019 patient was seen and examined on the medical floor she is alert and oriented 3 in no apparent distress she is feeling better with less pain and pressure in her neck, glucose levels are not well-controlled, patient states that she is ALLERGIC to all kind of insulin and is refusing sliding scale, currently she is maintained on metformin, Actos, and Victoza. , Will add glipizide 5 mg twice daily with meals and monitor glucose level closely, otherwise patient denies any other complaints there is no fever or chills no headache or dizziness no chest pain no shortness of breath no cough no nausea or vomiting no diarrhea no abdominal pain no burning was urination no frequency or urgency and no hematuria. Objective - Vital Signs Vital signs: Vital Signs Temp 97.9 F 07/30/19 14:27 Pulse 73 07/30/19 14:27 Resp 18 07/30/19 14:27 BP 120/70 07/30/19 14:27 Pulse Ox 99 07/30/19 14:27 Intake & Output 07/29/19 07/30/19 07/30/19 18:59 06:59 18:59 Intake Total 800 Balance 800 Weight 90.718 kg Intake: Intake, IV Titration 800 Amount Sodium Chloride 0.9% 1, 800 000 ml @ 100 mls/hr IV . Q10H [facility] Rx#:[id number] Other: Voiding Method Toilet # Voids 2 2 - Exam In general patient is alert and oriented in mild distress due to nausea and headache HEENT head normocephalic and atraumatic Neck is supple no JVD no goiter no lymphadenopathy, there is induration and erythema in the posterior aspect of the upper back with severe tenderness Chest exam reveals a few scattered rhonchi no wheezing Cardiac exam reveals regular heart sounds S1 and S2 no gallops no murmurs Abdomen is soft nontender no organomegaly with normal bowel sounds Extremity exam reveals no edema no cyanosis or clubbing Neurological examination reveals no gross focal deficit - Labs CBC & Chem 7: 07/29/19 11:20 07/29/19 11:20 Labs: Abnormal Lab Results - Last 24 Hours (Table) 07/29/19 07/30/19 07/30/19 Range/Units 20:09 06:57 11:33 POC Glucose (mg/dL) 309 H 265 H 342 H (75-99) mg/dL 07/30/19 Range/Units 16:22 POC Glucose (mg/dL) 282 H (75-99) mg/dL Microbiology - Last 24 Hours (Table) 07/29/19 11:20 Blood Culture - Preliminary Blood No Growth after 24 hours 07/29/19 11:20 Gram Stain - Preliminary Neck Wound Culture - Preliminary Presumptive Staph aureus Assessment and Plan Plan: 1. Posterior neck abscess, with incision and drainage 2 days ago at [facility] emergency room, patient was maintained on oral clindamycin however her symptoms continued to worsen. Currently she is admitted to medical floor and was started on IV Zosyn and IV vancomycin. 2. Underlying history of diabetes mellitus will check hemoglobin A1c continue home medications, at this time will add glipizide 5 mg twice a day patient is refusing all kind of insulin she states she is ALLERGIC. 3. Pain management for headache and neck pain, patient is having severe nausea at this time could be related to Dilaudid, will discontinue, and try IV morphine 4 mg every 4 hours when necessary 4. For nausea and vomiting patient will be given Zofran 4 mg IV every 6 hours when necessary Will follow during this admission please see orders
[2019-07-30] MEDS: BUTALB/APAP/CAFF 50-325-40MG TAB PO PRN (19:34)
[2019-07-30 19:58] LABS: Glucose,Whole Blood 254 mg/dL (75-99)
[2019-07-30] MEDS: NON FORMULARY DRUG (Liraglutide [Victoza 3-Pak] 1.8 MG) SQ SCH (21:07)
--- NOTE | 2019-07-31 00:13 | P.CONS ---
History of Present Illness - Reason for Consult Consult date: 07/30/19 post neck abscess Requesting physician: Samantha Mcadams - Chief Complaint post neck pain and swelling x days - History of Present Illness Patient is a 40-year-old female apparently developed a small area of irritation on the posterior neck area last week patient did mention scratching the area but no history of any trauma but she may have a bug bite the area becoming swollen red and painful for the patient went to the [facility] on Sunday patient be started on Keflex patient presented the next day with worsening swelling redness apparently did have a I&D of the area done and pus was removed she was continued Keflex and clindamycin was added however the patient did have persistent symptoms for the same reason the patient presented to [facility] yesterday patient has been evaluated by the ER physician she did have local culture showing presumptive staph aureus blood culture has been negative patient has been started on Zosyn and vancomycin infectious was consulted for further management and operative biotherapy patient be complaining of pain to the area tomorrow for a dull aching to sharp with intensity 5-6 out of 10 and no radiation no radiation, there has been some purulent drainage from it. Review of Systems Positive point has been mentioned in HPI rest of the systems are negative Past Medical History Past Medical History: Diabetes Mellitus Additional Past Medical History / Comment(s): lupus, pancreatitis, cardiac arr ythmia (unknown) History of Any Multi-Drug Resistant Organisms: None Reported Past Surgical History: Cholecystectomy Additional Past Surgical History / Comment(s): shunt for gallstones, frozen shoulder surgery Past Anesthesia/Blood Transfusion Reactions: No Reported Reaction Past Psychological History: No Psychological Hx Reported Smoking Status: Former smoker Past Alcohol Use History: None Reported Past Drug Use History: None Reported - Past Family History Father Family Medical History: Congestive Heart Failure (CHF), Diabetes Mellitus Additional Family Medical History / Comment(s): cabg Mother Family Medical History: Congestive Heart Failure (CHF), CVA/TIA, Myocardial Infarction (NM) Medications and Allergies Home Medications Medication Instructions Recorded Confirmed Type Liraglutide [Victoza 3-Bharat] 1.8 mg SQ HS 11/04/17 07/29/19 History metFORMIN HCL 1,000 mg PO BID 11/04/17 07/29/19 History Clindamycin HCl 300 mg PO TID 07/29/19 07/29/19 History Ertugliflozin Pidolate [Steglatro] 15 mg PO QAM 07/29/19 07/29/19 History HYDROcodone/APAP 7.5-325MG [[place] 1 tab PO BID 07/29/19 07/29/19 History 7.5-325] Pioglitazone [Actos] 15 mg PO QAM 07/29/19 07/29/19 History Allergies Allergy/AdvReac Type Severity Reaction Status Date / Time ciprofloxacin [From Cipro] Allergy Anaphylaxis Verified 07/29/19 11:48 insulin detemir Allergy Dyspnea Verified 07/29/19 11:48 insulin glargine Allergy Dyspnea Verified 07/29/19 11:48 meperidine HCl [From Demerol] Allergy Unknown Verified 07/29/19 11:48 Sulfa (Sulfonamide Allergy Unknown Verified 07/29/19 11:48 Antibiotics) Physical Exam Vitals: Vital Signs Temp Pulse Pulse Resp BP BP Pulse Ox 07/30/19 14:27 97.9 F 73 18 120/70 99 07/30/19 07:00 98.3 F 82 19 113/67 95 07/30/19 00:42 98.2 F 88 16 114/74 96 07/29/19 19:27 97.8 F 98 17 167/87 98 07/29/19 16:40 81 07/29/19 15:10 98.3 F 78 20 141/65 99 07/29/19 15:00 97.8 F 81 16 123/79 96 Intake and Output 07/29/19 07/30/19 07/30/19 22:59 06:59 14:59 Intake Total 800 Balance 800 Intake: Intake, IV Titration 800 Amount Sodium Chloride 0.9% 1, 800 000 ml @ 100 mls/hr IV . Q10H [facility] Rx#:[id number] Other: Voiding Method Toilet Toilet # Voids 2 GENERAL DESCRIPTION: Middle-aged female lying in bed, no distress. No tachypnea or accessory muscle of respiration use. HEENT: Shows Pallor , no scleral icterus. Oral mucous membrane is dry. NECK: Trachea central, no thyromegaly. LUNGS: Unlabored breathing. Clear to auscultation anteriorly. No wheeze or crackle. HEART: S1, S2, regular rate and rhythm. ABDOMEN: Soft, no tenderness , guarding or rigidity EXTREMITIES: No edema of feet. SKIN: No rash, no masses palpable. Posterior neck area did have an area of induration with minimal pressure green material came out no foul-smelling NEUROLOGICAL: The patient is awake, alert, oriented x3, mood and affect normal. Results CBC & Chem 7: 07/29/19 11:20 07/29/19 11:20 Labs: Abnormal Lab Results - Last 24 Hours (Table) 07/29/19 07/29/19 07/30/19 Range/Units 17:05 20:09 06:57 POC Glucose (mg/dL) 228 H 309 H 265 H (75-99) mg/dL 07/30/19 Range/Units 11:33 POC Glucose (mg/dL) 342 H (75-99) mg/dL Microbiology - Last 24 Hours (Table) 07/29/19 11:20 Blood Culture - Preliminary Blood No Growth after 24 hours 07/29/19 11:20 Gram Stain - Preliminary Neck Wound Culture - Preliminary Presumptive Staph aureus Assessment and Plan Assessment: -patient presented to hospital with posterior neck abscess likely from gram- positive skin beltran that has been drained at [facility] I was able to access her Microdata from that hospital and the culture has been finalized as MSSA (1) Neck abscess Current Visit: Yes Status: Acute Code(s): L02.11 - CUTANEOUS ABSCESS OF NECK SNOMED Code(s): 5702217 Plan: 1-discontinue vancomycin and Zosyn 2-cefazolin 2 g every 8 hour Patient advised to stay in the hospital for another 24 to 48-hour before transition to oral antibiotics we will follow on clinical condition and cultures to further adjust medication if needed Thank you for this consultation we will follow the patient along with you Time with Patient: Greater than 30
[2019-07-31] MEDS: KETOROLAC 30 MG/ML 1 ML VIAL IVP PRN ×4 (01:04→20:01)
[2019-07-31] MEDS: SODIUM CHLORIDE 0.9% 1,000 ML IV SCH ×2 (05:07→15:35)
[2019-07-31 06:51] LABS: Glucose,Whole Blood 220 mg/dL (75-99)
[2019-07-31] MEDS: metFORMIN 500 MG TAB PO SCH ×2 (07:18→17:35)
[2019-07-31] MEDS: NON FORMULARY DRUG (Ertugliflozin Pidolate [Steglatro] 15 MG) PO SCH (08:16)
[2019-07-31] MEDS: HYDROcodone/APAP 7.5-325MG 1 EACH TAB PO SCH ×2 (08:17→20:59)
[2019-07-31] MEDS: PANTOPRAZOLE 40 MG/10 ML VIAL IV SCH (08:17)
[2019-07-31] MEDS: PIOGLITAZONE 15 MG TAB PO SCH (08:18)
[2019-07-31] MEDS: NICOTINE 14MG/24HR PATCH TRANSDERM SCH (08:18)
[2019-07-31] MEDS: ONDANSETRON 4 MG/2 ML VIAL IVP PRN ×2 (08:22→14:27)
--- NOTE | 2019-07-31 09:55 | P.PN ---
<Dee Dee Cisse - Last Filed: 07/31/19 09:51> Subjective Progress Note Date: 07/31/19 CHIEF COMPLAINT: Neck abscess HISTORY OF PRESENT ILLNESS: Patient examined this morning at the bedside. She reports improvement in neck pain. Also, reports resolution of headaches. She states her neck feels less swollen today. Cultures are positive for MSSA. PHYSICAL EXAM: VITAL SIGNS: Reviewed. GENERAL: Well-developed in no acute distress. HEENT: No sclera icterus. Extraocular movements grossly intact. Moist buccal mucosa. Head is atraumatic, normocephalic. ABDOMEN: Soft. Nondistended. Nontender. NEUROLOGIC: Alert and oriented. Cranial nerves II through XII grossly intact. SKIN: Patient with evidence of abscess to posterior neck. Small opening with pur ulent drainage noted. Improved tenderness, erythema, and swelling ASSESSMENT: 1. Neck abscess 2. Uncontrolled diabetes mellitus with hyperglycemia PLAN: -Recommend tight glucose control for optimal wound healing -Continue IV antibiotics per infectious disease -Continue local wound care Nurse practitioner note has been reviewed by physician. Signing provider agrees with the documented findings, assessment, and plan of care. Objective - Vital Signs Vital signs: Vital Signs Temp 97.9 F 07/31/19 07:00 Pulse 77 07/31/19 07:00 Resp 16 07/31/19 07:00 BP 126/75 07/31/19 07:00 Pulse Ox 96 07/31/19 07:00 Intake & Output 07/30/19 07/31/19 07/31/19 18:59 06:59 18:59 Intake Total 550 Balance 550 Intake: Intake, IV Titration 550 Amount Sodium Chloride 0.9% 1, 300 000 ml @ 100 mls/hr IV . Q10H [facility] Rx#:[id number] Vancomycin 1,500 mg In 250 Sodium Chloride 0.9% 250 ml @ 125 mls/hr IVPB Q12H [facility] Rx#:[id number] Other: Voiding Method Toilet # Voids 2 1 - Labs CBC & Chem 7: 07/29/19 11:20 07/29/19 11:20 Labs: Abnormal Lab Results - Last 24 Hours (Table) 07/30/19 07/30/19 07/30/19 Range/Units 11:33 16:22 19:56 POC Glucose (mg/dL) 342 H 282 H 254 H (75-99) mg/dL 07/31/19 Range/Units 06:49 POC Glucose (mg/dL) 220 H (75-99) mg/dL Microbiology - Last 24 Hours (Table) 07/29/19 11:20 Gram Stain - Final Neck Wound Culture - Final Staphylococcus aureus 07/29/19 11:20 Blood Culture - Preliminary Blood No Growth after 24 hours <Santosh Vidalony - Last Filed: 07/31/19 13:55> Subjective As above. Patient with less pain. Area of induration and erythema slightly improved. Cultures noted. Continue local wound care. We'll follow. Objective - Vital Signs Vital signs: Vital Signs Temp 97.9 F 07/31/19 07:00 Pulse 77 07/31/19 07:00 Resp 16 07/31/19 07:00 BP 126/75 07/31/19 07:00 Pulse Ox 96 07/31/19 07:00 Intake & Output 07/30/19 07/31/19 07/31/19 18:59 06:59 18:59 Intake Total 550 Balance 550 Intake: Intake, IV Titration 550 Amount Sodium Chloride 0.9% 1, 300 000 ml @ 100 mls/hr IV . Q10H [facility] Rx#:[id number] Vancomycin 1,500 mg In 250 Sodium Chloride 0.9% 250 ml @ 125 mls/hr IVPB Q12H [facility] Rx#:[id number] Other: Voiding Method Toilet # Voids 2 1 - Labs CBC & Chem 7: 07/29/19 11:20 07/31/19 11:20 Labs: Abnormal Lab Results - Last 24 Hours (Table) 07/30/19 07/30/19 07/31/19 Range/Units 16:22 19:56 06:49 POC Glucose (mg/dL) 282 H 254 H 220 H (75-99) mg/dL 07/31/19 Range/Units 11:46 POC Glucose (mg/dL) 283 H (75-99) mg/dL Microbiology - Last 24 Hours (Table) 07/29/19 11:20 Blood Culture - Preliminary Blood No Growth after 48 hours 07/29/19 11:20 Gram Stain - Final Neck Wound Culture - Final Staphylococcus aureus
[2019-07-31] MEDS ORDERED: VANCOMYCIN TROUGH DUE 1 EACH MISC MISCELLANE ONE (11:00)
[2019-07-31 11:47] LABS: Glucose,Whole Blood 283 mg/dL (75-99)
[2019-07-31 12:02] LABS: African American GFR (CKD) >90 (>60 ml/min/1.73 sqM); Non-African American GFR(CKD) >90 (>60 ml/min/1.73 sqM)
--- NOTE | 2019-07-31 16:23 | P.PN ---
Subjective Progress Note Date: 07/31/19 Christie Garcia is a 48-year-old female who presented to [facility] emergency room with severe pain and tenderness in back of her neck, patient states that she went with similar complaint twice to [facility] emergency room, on the first visit she was given an oral antibiotic for cellulitis, on the second visit she was told that she have an abscess and the emergency room physician performed incision and drainage, she was discharged home on the same oral antibiotic, she comes in today with severe pain and tenderness in her neck she was evaluated in the emergency room she was started on IV antibiotic Zosyn and vancomycin and was admitted to medical floor, surgical consultation and infectious disease consultation were requested. Patient has a known history of diabetes Mellitus, she also has a previous history of pancreatitis, she stated that she was diagnosed with lupus in the past. She states that she used to smoke, but is not a current smoker at this time. On 07/30/2019 patient was seen and examined on the medical floor she is alert and oriented 3 in no apparent distress she is feeling better with less pain and pressure in her neck, glucose levels are not well-controlled, patient states that she is ALLERGIC to all kind of insulin and is refusing sliding scale, currently she is maintained on metformin, Actos, and Victoza. , Will add glipizide 5 mg twice daily with meals and monitor glucose level closely, otherwise patient denies any other complaints there is no fever or chills no headache or dizziness no chest pain no shortness of breath no cough no nausea or vomiting no diarrhea no abdominal pain no burning was urination no frequency or urgency and no hematuria. On 07/31/2019 patient was seen and examined on the medical floor she is alert and oriented 3 in no apparent distress, pain and drainage from her neck abscess has improved significantly since yesterday, glucose level are still elevated, patient is still refusing any kind of insulin, will increase dose of glipizide to 5 mg twice daily continue With all her other diabetes medications. Clinically patient is doing better there is no fever or chills no headache or dizziness no chest pain no shortness of breath no cough no nausea or vomiting no abdominal pain no diarrhea and no urinary symptoms. Objective - Vital Signs Vital signs: Vital Signs Temp 98.4 F 07/31/19 15:00 Pulse 82 05/21/20 15:00 Resp 18 07/31/19 15:00 BP 135/70 07/31/19 15:00 Pulse Ox 97 07/31/19 15:00 Intake & Output 07/30/19 07/31/19 07/31/19 18:59 06:59 18:59 Intake Total 550 540 Balance 550 540 Intake: Intake, IV Titration 550 Amount Sodium Chloride 0.9% 1, 300 000 ml @ 100 mls/hr IV . Q10H [facility] Rx#:[id number] Vancomycin 1,500 mg In 250 Sodium Chloride 0.9% 250 ml @ 125 mls/hr IVPB Q12H [facility] Rx#:[id number] Oral 540 Other: Voiding Method Toilet # Voids 2 1 2 - Exam In general patient is alert and oriented in mild distress due to nausea and headache HEENT head normocephalic and atraumatic Neck is supple no JVD no goiter no lymphadenopathy, there is induration and erythema in the posterior aspect of the upper back with severe tenderness Chest exam reveals a few scattered rhonchi no wheezing Cardiac exam reveals regular heart sounds S1 and S2 no gallops no murmurs Abdomen is soft nontender no organomegaly with normal bowel sounds Extremity exam reveals no edema no cyanosis or clubbing Neurological examination reveals no gross focal deficit - Labs CBC & Chem 7: 07/29/19 11:20 07/31/19 11:20 Labs: Abnormal Lab Results - Last 24 Hours (Table) 07/30/19 07/30/19 07/31/19 Range/Units 16:22 19:56 06:49 POC Glucose (mg/dL) 282 H 254 H 220 H (75-99) mg/dL 07/31/19 Range/Units 11:46 POC Glucose (mg/dL) 283 H (75-99) mg/dL Microbiology - Last 24 Hours (Table) 07/29/19 11:20 Blood Culture - Preliminary Blood No Growth after 48 hours 07/29/19 11:20 Gram Stain - Final Neck Wound Culture - Final Staphylococcus aureus Assessment and Plan Plan: 1. Posterior neck abscess, with incision and drainage 2 days ago at [facility] emergency room, patient was maintained on oral clindamycin however her symptoms continued to worsen. Currently she is admitted to medical floor and was started on IV Zosyn and IV vancomycin. 2. Underlying history of diabetes mellitus will check hemoglobin A1c continue home medications, at this time will add glipizide 5 mg twice a day patient is refusing all kind of insulin she states she is ALLERGIC. 3. Pain management for headache and neck pain, patient is having severe nausea at this time could be related to Dilaudid, will discontinue, and try IV morphine 4 mg every 4 hours when necessary 4. For nausea and vomiting patient will be given Zofran 4 mg IV every 6 hours when necessary Will follow during this admission please see orders
[2019-07-31 17:05] LABS: Glucose,Whole Blood 286 mg/dL (75-99)
[2019-07-31 20:07] LABS: Glucose,Whole Blood 411 mg/dL (75-99)
[2019-07-31] MEDS: NON FORMULARY DRUG (Liraglutide [Victoza 3-Pak] 1.8 MG) SQ SCH (20:08)
--- NOTE | 2019-07-31 20:08 | PN ---
PROGRESS NOTE DATE OF SERVICE: 07/31/2019 REASON FOR FOLLOW UP: Posterior neck abscess MSSA. INTERVAL HISTORY: The patient is currently afebrile. Patient is feeling slightly better. Her discomfort to the posterior neck area is slightly decreased. Denies having any chest pain or shortness of breath or cough. No abdominal pain. No diarrhea. PHYSICAL EXAMINATION: Blood pressure 135/70 with a pulse of 82, temperature 98.4. She is 97% on room air. General description is a middle-aged female up in the bed in no distress. Respiratory system: Unlabored breathing. Clear to auscultation. HEART: S1, S2. Regular rate and rhythm. Back area overall induration has slightly decreased. LABS: No new labs have been obtained today. Wound culture with MSSA. Blood culture has been negative. DIAGNOSTIC IMPRESSION AND PLAN: Patient with a posterior neck abscess status post drainage. Continue with IV cefazolin for at least another 24 hours before transition to oral antibiotics and continue supportive care. MMODL / IJN: [id number] /
[2019-07-31] MEDS: BUTALB/APAP/CAFF 50-325-40MG TAB PO PRN (21:06)
[2019-08-01] MEDS: MORPHINE SULFATE 4 MG/ML SYRINGE IVP PRN (00:25)
[2019-08-01] MEDS: ONDANSETRON 4 MG/2 ML VIAL IVP PRN (00:26)
[2019-08-01] MEDS: SODIUM CHLORIDE 0.9% 1,000 ML IV SCH ×2 (02:19→13:32)
[2019-08-01 07:21] LABS: Glucose,Whole Blood 202 mg/dL (75-99)
[2019-08-01] MEDS: NON FORMULARY DRUG (Ertugliflozin Pidolate [Steglatro] 15 MG) PO SCH (08:14)
[2019-08-01 08:16] VITALS: RESP 16
[2019-08-01] MEDS: NICOTINE 14MG/24HR PATCH TRANSDERM SCH (08:16)
[2019-08-01] MEDS: metFORMIN 500 MG TAB PO SCH (08:18)
[2019-08-01] MEDS: PIOGLITAZONE 15 MG TAB PO SCH (08:18)
[2019-08-01] MEDS: HYDROcodone/APAP 7.5-325MG 1 EACH TAB PO SCH (08:18)
[2019-08-01] MEDS ORDERED: PANTOPRAZOLE 40 MG TABLET PO SCH (09:00)
--- NOTE | 2019-08-01 09:23 | P.PN ---
<Dee Dee Cisse Stefany - Last Filed: 08/01/19 09:20> Subjective Progress Note Date: 08/01/19 CHIEF COMPLAINT: Neck abscess HISTORY OF PRESENT ILLNESS: Patient examined this morning at the bedside. She reports tenderness to the neck, but states it is about the same as yesterday or slightly better. Dressing changed at the bedside. Still able to express purulent drainage, however amount has lessened. Culture positive for MSSA. PHYSICAL EXAM: VITAL SIGNS: Reviewed. GENERAL: Well-developed in no acute distress. HEENT: No sclera icterus. Extraocular movements grossly intact. Moist buccal mucosa. Head is atraumatic, normocephalic. ABDOMEN: Soft. Nondistended. Nontender. NEUROLOGIC: Alert and oriented. Cranial nerves II through XII grossly intact. SKIN: Patient with evidence of abscess to posterior neck. Small opening with purulent drainage noted. Improved tenderness, erythema, and swelling ASSESSMENT: 1. Neck abscess 2. Uncontrolled diabetes mellitus with hyperglycemia PLAN: -Recommend tight glucose control for optimal wound healing -Continue IV antibiotics per infectious disease -Continue local wound care Nurse practitioner note has been reviewed by physician. Signing provider agrees with the documented findings, assessment, and plan of care. Objective - Vital Signs Vital signs: Vital Signs Temp 97.8 F 08/01/19 07:09 Pulse 69 08/01/19 07:09 Resp 16 08/01/19 07:09 BP 119/77 08/01/19 07:09 Pulse Ox 95 08/01/19 07:09 Intake & Output 07/31/19 08/01/19 08/01/19 18:59 06:59 18:59 Intake Total 540 Balance 540 Intake: Oral 540 Other: Voiding Method Toilet # Voids 2 1 - Labs CBC & Chem 7: 07/29/19 11:20 07/31/19 11:20 Labs: Abnormal Lab Results - Last 24 Hours (Table) 07/31/19 07/31/19 07/31/19 Range/Units 11:46 17:04 20:05 POC Glucose (mg/dL) 283 H 286 H 411 H (75-99) mg/dL 08/01/19 Range/Units 07:19 POC Glucose (mg/dL) 202 H (75-99) mg/dL Microbiology - Last 24 Hours (Table) 07/29/19 11:20 Blood Culture - Preliminary Blood No Growth after 48 hours 07/29/19 11:20 Gram Stain - Final Neck Wound Culture - Final Staphylococcus aureus <Ashvin Vidal - Last Filed: 08/01/19 13:42> Subjective As above. Wound slightly improved. Symptoms are definitely better. We'll sign off. Please call if incision and drainage felt to be necessary. Objective - Vital Signs Vital signs: Vital Signs Temp 97.8 F 08/01/19 07:09 Pulse 69 08/01/19 07:09 Resp 16 08/01/19 07:09 BP 119/77 08/01/19 07:09 Pulse Ox 95 08/01/19 07:09 Intake & Output 07/31/19 08/01/19 08/01/19 18:59 06:59 18:59 Intake Total 540 50 Balance 540 50 Intake: Intake, IV Titration 50 Amount ceFAZolin 2 gm In Sodium 50 Chloride 0.9% 50 ml @ 100 mls/hr IVPB Q8HR [facility] Rx# :[id number] Oral 540 Other: Voiding Method Toilet # Voids 2 1 2 - Labs CBC & Chem 7: 08/01/19 09:26 08/01/19 09:26 Labs: Abnormal Lab Results - Last 24 Hours (Table) 07/31/19 07/31/19 08/01/19 Range/Units 17:04 20:05 07:19 MCHC (31.0-37.0) g/dL Sodium (137-145) mmol/L Glucose (74-99) mg/dL POC Glucose (mg/dL) 286 H 411 H 202 H (75-99) mg/dL Total Bilirubin (0.2-1.3) mg/dL Total Protein (6.3-8.2) g/dL Albumin (3.5-5.0) g/dL 08/01/19 08/01/19 08/01/19 Range/Units 09:26 09:26 11:50 MCHC 30.1 L (31.0-37.0) g/dL Sodium 134 L (137-145) mmol/L Glucose 357 H (74-99) mg/dL POC Glucose (mg/dL) 275 H (75-99) mg/dL Total Bilirubin 0.1 L (0.2-1.3) mg/dL Total Protein 6.0 L (6.3-8.2) g/dL Albumin 3.3 L (3.5-5.0) g/dL Microbiology - Last 24 Hours (Table) 07/29/19 11:20 Blood Culture - Preliminary Blood No Growth after 72 hours
[2019-08-01 10:28] LABS: Basophils % (A) 1 %; Eosinophils # (A) 0.5 k/uL (0-0.7); Eosinophils % (A) 8 %; HCT 41.1 % (34.0-46.0); HGB 12.4 gm/dL (11.4-16.0); Lymphocytes # (A) 1.8 k/uL (1.0-4.8); Lymphocytes % (A) 27 %; MCH 29.6 pg (25.0-35.0); MCHC 30.1 g/dL (31.0-37.0); MCV 98.5 fL (80.0-100.0); Mean Platelet Volume 9.3; Monocytes # (A) 0.3 k/uL (0-1.0); Monocytes % (A) 5 %; Neutrophils # (A) 3.9 k/uL (1.3-7.7); Neutrophils % (A) 59 %; Platelet Count 269 k/uL (150-450); RBC 4.17 m/uL (3.80-5.40); RDW 12.4 % (11.5-15.5); WBC 6.7 k/uL (3.8-10.6)
[2019-08-01 10:44] LABS: ALT 31 U/L (4-34); AST 34 U/L (14-36); African American GFR (CKD) >90 (>60 ml/min/1.73 sqM); Albumin 3.3 g/dL (3.5-5.0); Alkaline Phosphatase 64 U/L (38-126); Anion Gap 10 mmol/L; Blood Urea Nitrogen 9 mg/dL (7-17); Calcium 8.9 mg/dL (8.4-10.2); Carbon Dioxide 24 mmol/L (22-30); Chloride 100 mmol/L (98-107); Glucose 357 mg/dL (74-99); Non-African American GFR(CKD) >90 (>60 ml/min/1.73 sqM); Potassium 4.8 mmol/L (3.5-5.1); Sodium 134 mmol/L (137-145); Total Bilirubin 0.1 mg/dL (0.2-1.3)
[2019-08-01 11:54] LABS: Glucose,Whole Blood 275 mg/dL (75-99)
--- NOTE | 2019-08-01 14:36 | P.DS ---
Providers Date of admission: 07/31/19 08:05 Expected date of discharge: 08/01/19 Attending physician: Samantha Mcadams Consults: 07/29/19 13:05 Consult Physician Stat Consulting Provider: Ashvin iVdal Consult Reason/Comments: Posterior neck abscess, failure outpatient treatment Do you want consulting provider notified?: Yes 07/29/19 19:31 Consult Physician Routine Consulting Provider: Ashvin Vidal Consult Reason/Comments: neck abcess Do you want consulting provider notified?: Yes 07/29/19 19:32 Consult Physician Routine Consulting Provider: Key Alba Consult Reason/Comments: neck abcess Do you want consulting provider notified?: Yes Primary care physician: Gloria Ch Lds Hospital Course: diagnosis on discharge: 1. Posterior neck abscess, with incision and drainage [address] [facility] emergency room, patient was maintained on oral clindamycin however her symptoms continued to worsen. Currently she is admitted to medical floor and was started on IV Zosyn and IV vancomycin. culture came back positive for methicillin sensitive Staphylococcus aureus IV antibiotics switched to Kefzol, patient continued to improve she was switched to oral Keflex 500 mg 4 times a day for 10 more days and was cleared for discharge. 2. Underlying history of diabetes mellitus will check hemoglobin A1c continue home medications, at this time will add glipizide 5 mg twice a day patient is refusing all kind of insulin she states she is ALLERGIC. 3. Pain management for headache and neck pain, patient is having severe nausea at this time could be related to Dilaudid, will discontinue, and try IV morphine 4 mg every 4 hours when necessary 4. For nausea and vomiting patient will be given Zofran 4 mg IV every 6 hours when necessary Hospital course: Christie Garcia is a 48-year-old female who presented to [facility] emergency room with severe pain and tenderness in back of her neck, patient states that she went with similar complaint twice to [facility] emergency room, on the first visit she was given an oral antibiotic for cellulitis, on the second visit she was told that she have an abscess and the emergency room physician performed incision and drainage, she was discharged home on the same oral antibiotic, she comes in today with severe pain and ten derness in her neck she was evaluated in the emergency room she was started on IV antibiotic Zosyn and vancomycin and was admitted to medical floor, surgical consultation and infectious disease consultation were requested. Patient has a known history of diabetes Mellitus, she also has a previous history of pancreatitis, she stated that she was diagnosed with lupus in the past. She states that she used to smoke, but is not a current smoker at this time. On 07/30/2019 patient was seen and examined on the medical floor she is alert and oriented 3 in no apparent distress she is feeling better with less pain and pressure in her neck, glucose levels are not well-controlled, patient states that she is ALLERGIC to all kind of insulin and is refusing sliding scale, currently she is maintained on metformin, Actos, and Victoza. , Will add glipizide 5 mg twice daily with meals and monitor glucose level closely, otherwise patient denies any other complaints there is no fever or chills no headache or dizziness no chest pain no shortness of breath no cough no nausea or vomiting no diarrhea no abdominal pain no burning was urination no frequency or urgency and no hematuria. On 07/31/2019 patient was seen and examined on the medical floor she is alert and oriented 3 in no apparent distress, pain and drainage from her neck abscess has improved significantly since yesterday, glucose level are still elevated, patient is still refusing any kind of insulin, will increase dose of glipizide to 5 mg twice daily continue With all her other diabetes medications. Clinically patient is doing better there is no fever or chills no headache or dizziness no chest pain no shortness of breath no cough no nausea or vomiting no abdominal pain no diarrhea and no urinary symptoms. on 08/01/2019 patient was seen and examined on the medical floor she is alert and oriented 3 in no apparent distress she reports improvement in the pain drainage and induration and redness of her abscess, patient was evaluated by surgery and infectious disease and was cleared for discharge, she was given a prescription of Keflex 500 mg every 6 hours for [address] Alba. Follow-up with primary care physician Dr. Ch in 10 days Patient Condition at Discharge: Good Plan - Discharge Summary Discharge Rx Participant: No New Discharge Prescriptions: New Cephalexin [Keflex] 500 mg PO Q6HR #40 cap Nicotine 14Mg/24Hr Patch [Habitrol] 1 patch TRANSDERM DAILY patch Continue metFORMIN HCL 1,000 mg PO BID Liraglutide [Victoza 3-Bharat] 1.8 mg SQ HS HYDROcodone/APAP 7.5-325MG [[place] 7.5-325] 1 tab PO BID Ertugliflozin Pidolate [Steglatro] 15 mg PO QAM Pioglitazone [Actos] 15 mg PO QAM Discontinued Clindamycin HCl 300 mg PO TID Discharge Medication List Liraglutide [Victoza 3-Bharat] 1.8 mg SQ HS 11/04/17 [History] metFORMIN HCL 1,000 mg PO BID 11/04/17 [History] Ertugliflozin Pidolate [Steglatro] 15 mg PO QAM 07/29/19 [History] HYDROcodone/APAP 7.5-325MG [[place] 7.5-325] 1 tab PO BID 07/29/19 [History] Pioglitazone [Actos] 15 mg PO QAM 07/29/19 [History] Cephalexin [Keflex] 500 mg PO Q6HR #40 cap 08/01/19 [Rx] Nicotine 14Mg/24Hr Patch [Habitrol] 1 patch TRANSDERM DAILY patch 08/01/19 [Rx] Follow up Appointment(s)/Referral(s): Gloria Ch MD [Primary Care Provider] - 1-2 days Key Alba MD [STAFF PHYSICIAN] - 1 Week
[2019-08-01 14:51] VITALS: BP 127/79; PULSE 63; TEMP 98.3
[2019-08-01 15:12] LABS: Glucose,Whole Blood 265 mg/dL (75-99)
--- NOTE | 2019-08-01 15:55 | PN ---
PROGRESS NOTE DATE OF SERVICE: 08/01/2019 REASON FOR FOLLOWUP: Posterior neck area abscess and cellulitis with MSSA. INTERVAL HISTORY: The patient is currently afebrile. The patient is feeling better, breathing comfortably. Overall discomfort to the posterior neck area has improved. Drainage has decreased. No chest pain, shortness of breath or cough. No abdominal pain or diarrhea. PHYSICAL EXAMINATION: Blood pressure 127/79 with a pulse of 63, temperature 98.3. She is 96% on room air. General description is a middle-aged female up in the bed in no distress. EXAMINATION OF THE POSTERIOR NECK AREA: Overall induration and swelling and redness have decreased. No drainage. LUNGS: Unlabored breathing. Clear to auscultation anteriorly. HEART: S1, S2. Regular rate and rhythm. ABDOMEN: Soft. No tenderness. LABS: Hemoglobin is 12.4, white count 6.7, BUN of 9, creatinine 0.73. DIAGNOSTIC IMPRESSION AND PLAN: Patient with a posterior neck area abscess and cellulitis. Culture with MSSA. Clinical improvement on cefazolin. Finishing therapy with oral Keflex; prescription sent to the pharmacy. Continue with supportive care. MMODL / IJN: [id number] /
== END 2019-08-01 15:30 | disposition home or self-care (01) | DRG 603 ==
LOC: EC 10:11 → 4SSUR 12:52 → OBSVTOIN 07-31 08:05
PROVIDERS: ADMIT Internal Medicine; ATTEND Internal Medicine
DX: L02.11 Cutaneous abscess of neck (principal); Z11.59 Encounter for screening for other viral diseases; M32.9 Systemic lupus erythematosus, unspecified; E11.65 Type 2 diabetes mellitus with hyperglycemia; R79.82 Elevated C-reactive protein (CRP); R51 Headache; R11.2 Nausea with vomiting, unspecified; L03.221 Cellulitis of neck; E66.9 Obesity, unspecified; B95.61 Methicillin susceptible Staphylococcus aureus infection as the cause of diseases classified elsewhere; Z68.32 Body mass index [BMI] 32.0-32.9, adult; Z79.891 Long term (current) use of opiate analgesic; Z79.84 Long term (current) use of oral hypoglycemic drugs; Z79.899 Other long term (current) drug therapy; Z90.49 Acquired absence of other specified parts of digestive tract; Z98.890 Other specified postprocedural states; Z87.891 Personal history of nicotine dependence; Z88.1 Allergy status to other antibiotic agents; Z88.5 Allergy status to narcotic agent; Z88.2 Allergy status to sulfonamides; Z88.8 Allergy status to other drugs, medicaments and biological substances; Z83.3 Family history of diabetes mellitus; Z82.49 Family history of ischemic heart disease and other diseases of the circulatory system; Z82.3 Family history of stroke
CPT/HCPCS: 36415; 80053; 80202; 82565; 83605; 85025; 86140; 87040; 87070; 87077; 87186; 87205; 87635; 96365; 96366; 96367; 96375; 99285

== ENCOUNTER → 2019-10-02 | Outpatient (CLI) | payer OTHER ==
--- NOTE | 2019-10-02 12:53 | XR ---
EXAMINATION TYPE: XR chest 2V DATE OF EXAM: 10/02/2019 COMPARISON: 11/04/2017 TECHNIQUE: PA and lateral views submitted. HISTORY: Shortness of breath and chest pain FINDINGS: Subsegmental changes extending from the right hilum and left lung base are stable and most typical of chronic atelectasis or scar. No pneumothorax. Heart size normal. No overt failure. No sizable pleura l effusion. Hypertrophic and degenerative change of the spine. IMPRESSION: 1. Bilateral areas of disc like consolidation most typical discoid atelectasis or chronic scarring.
== END | disposition home or self-care (01) ==
LOC: RADXRMAIN 12:03
PROVIDERS: ATTEND Family Medicine
DX: J98.11 Atelectasis (principal); R09.1 Pleurisy
CPT/HCPCS: 71046

== ENCOUNTER → 2019-10-21 | Outpatient (CLI) | payer OTHER ==
--- NOTE | 2019-10-21 09:09 | MM ---
Reason for exam: additional evaluation requested from prior study. Last mammogram was performed 1 year and 1 month ago. History: Patient is postmenopausal. Family history of breast cancer in paternal grandmother. Physical Findings: Nurse did not find any significant physical abnormalities on exam. MG 3D Diag Mammo W/Cad MARCIA Bilateral CC and MLO view(s) were taken. Prior study comparison: September 20, 2018, bilateral MG 3d diag mammo w/cad MARCIA. November 18, 2015, bilateral MG 3d screening mammo w/cad. The breast tissue is heterogeneously dense. This may lower the sensitivity of mammography. Benign appearing bilateral calcifications. No significant new findings when compared with previous films. These results were verbally communicated with the patient and result sheet given to the patient on 10/21/19. ASSESSMENT: Benign, BI-RAD 2 RECOMMENDATION: Routine screening mammogram of both breasts in 1 year.
== END | disposition home or self-care (01) ==
LOC: RADMAMWWP 07:41
PROVIDERS: ATTEND Family Medicine
DX: N64.4 Mastodynia (principal); R92.8 Other abnormal and inconclusive findings on diagnostic imaging of breast
CPT/HCPCS: 77066; G0279; 77062

== ENCOUNTER → 2020-06-02 | Day surgery (SDC) | payer OTHER ==
[2020-05-28 16:18] VITALS: BMI 33.9
[~2020-06-02] MED LIST: LACTATED RINGERS 1,000 ML IV SCH; LIDOCAINE 1% (10MG/ML) FOR IV START INTRADERMA ONE; LIDOCAINE 1% INJ 10MG/ML (20 ML MDV) ONE; PROPOFOL 10 MG/ML 20 ML VIAL IV ONE
[2020-06-02 08:11] LABS: Glucose,Whole Blood 225 mg/dL (75-99)
--- NOTE | 2020-06-02 08:49 | P.PCN ---
Date of Procedure: 06/02/20 Procedure(s) Performed: BRIEF HISTORY: Patient is a 49-year-old, pleasant, white female scheduled for an upper endoscopy as a part of evaluation of intermittent episodes of nausea vomiting and dysphagia for the last 1-2 years duration.. PROCEDURE PERFORMED: Esophagogastroduodenoscopy with biopsy. PREOPERATIVE DIAGNOSIS: Intermittent episodes of dysphagia/nausea vomiting. IV sedation per anesthesia. PROCEDURE: After informed consent was obtained, the patient was brought into the endoscopy unit. IV sedation was administered by Anesthesia under continuous monitoring. Initially the Olympus GIF-140 video endoscope was inserted into the mouth. Esophagus intubated without any difficulty. It was gradually advanced into the stomach and duodenum and carefully examined. The bulb and the second part of the duodenum appeared normal. The scope at this time was withdrawn to the stomach, adequately insufflated with air, and upon careful examination, mucosa of the antrum had mild gastritis and biopsies were done from this area. Small amount of retained food was noted in the stomach. The, body, cardia and the fundus appeared normal. The scope was then withdrawn into the esophagus. The GE junction was located at 39 cm from the incisors. There were 2 superficial erosions in the distal esophagus at the GE junction consistent with LA grade B reflux esophagitis. The rest of the esophagus appeared normal. There was no evidence of esophageal stricture, biopsies were done from the distal esophagus and the patient tolerated the procedure well. IMPRESSION: 1. Mild antral gastritis. 2. LA rade B reflux esophagitis. no evidence of esophageal stricture 3. Small amount of retained food in the stomach. RECOMMENDATIONS: The findings of this examination were discussed with the patient as well as a family. She was advised to follow with the biopsy results. She'll be seen in office in 2 weeks..
[2020-06-02 09:11] VITALS: BP 125/76; PULSE 64; RESP 18
== END ==
LOC: ORWHC2ENDO 07:31
PROVIDERS: ATTEND Internal Medicine Gastroenterology
DX: K31.9 Disease of stomach and duodenum, unspecified (principal); K20.0 Eosinophilic esophagitis; K29.70 Gastritis, unspecified, without bleeding; Z98.890 Other specified postprocedural states; Z78.0 Asymptomatic menopausal state; E11.9 Type 2 diabetes mellitus without complications; Z79.4 Long term (current) use of insulin; Z79.899 Other long term (current) drug therapy; Z88.5 Allergy status to narcotic agent; Z88.1 Allergy status to other antibiotic agents; Z88.2 Allergy status to sulfonamides; Z88.8 Allergy status to other drugs, medicaments and biological substances
CPT/HCPCS: 88305; 43239; J2001; J2704

== ENCOUNTER → 2020-11-23 | Outpatient (CLI) | payer OTHER ==
--- NOTE | 2020-11-24 14:50 | MM ---
Reason for exam: screening (asymptomatic). Last mammogram was performed 1 year and 1 month ago. History: Patient is postmenopausal. Family history of breast cancer in paternal grandmother. Physical Findings: A clinical breast exam by your physician is recommended on an annual basis and results should be correlated with mammographic findings. MG 3D Screening Mammo W/Cad Bilateral CC view(s) were taken. MLO and XCCL view(s) were taken of the left breast. Prior study comparison: October 21, 2019, bilateral MG 3d diag mammo w/cad MARCIA. September 20, 2018, bilateral MG 3d diag mammo w/cad MARCIA. November 18, 2015, bilateral MG 3d screening mammo w/cad. The breast tissue is heterogeneously dense. This may lower the sensitivity of mammography. Patient refused right MLO view. No significant changes when compared with prior studies. ASSESSMENT: Benign, BI-RAD 2 RECOMMENDATION: Routine screening mammogram of both breasts in 1 year.
== END | disposition home or self-care (01) ==
LOC: RADMAMWWP 16:45
PROVIDERS: ATTEND Family Medicine
DX: Z12.31 Encounter for screening mammogram for malignant neoplasm of breast (principal); Z78.0 Asymptomatic menopausal state; Z80.3 Family history of malignant neoplasm of breast
CPT/HCPCS: 77063; 77067

== ENCOUNTER → 2021-03-24 | Outpatient (CLI) | payer OTHER ==
--- NOTE | 2021-03-24 15:15 | XR ---
EXAMINATION TYPE: XR Hip Bilateral Complete DATE OF EXAM: 03/24/2021 COMPARISON: NONE HISTORY: 50-year-old female M16.0, bilateral hip osteoarthritis, chronic pain and limited range of mo tion. TECHNIQUE: 2 views each side FINDINGS: Relative maintained hip joint space on both sides. Bone island inferior left femoral head. No acute f racture, subluxation or dislocation. IMPRESSION: No acute osseous abnormality seen.
== END | disposition home or self-care (01) ==
LOC: RADXRMAIN 13:03
PROVIDERS: ATTEND Family Medicine
DX: M16.0 Bilateral primary osteoarthritis of hip (principal); G89.29 Other chronic pain
CPT/HCPCS: 73521

== ENCOUNTER → 2022-02-21 | Outpatient (CLI) | payer OTHER ==
--- NOTE | 2022-02-21 17:04 | MM ---
Reason for Exam: Screening (asymptomatic). Last mammogram was performed 2 year(s) and 4 month(s) ago. Patient History: Menarche at age 13. First Full-Term at age 18. Postmenopausal. Paternal grandmother had breast cancer. Risk Values: Graciela 5 year model risk: 0.7%. NCI Lifetime model risk: 6.4%. Prior Study Comparison: 09/20/2018 Bilateral Diagnostic Mammogram, [facility]. 10/21/2019 Bilateral Diagnostic Mammogram, [facility]. 11/23/2020 Bilateral Screening Mammogram, [facility]. Tissue Density: The breast tissue is heterogeneously dense. This may lower the sensitivity of mammography. Findings: Analyzed By CAD. Benign-appearing bilateral axillary lymph nodes are redemonstrated. There is no suspicious new group of microcalcifications or new suspicious mass in either breast. Overall Assessment: Negative, BI-RAD 1 Management: Screening Mammogram of both breasts in 1 year. A clinical breast exam by your physician is recommended on an annual basis and results should be correlated with mammographic findings. Electronically signed and approved by: Clifford Menendez M.D.
== END | disposition home or self-care (01) ==
LOC: RADMAMWWP 10:48
PROVIDERS: ATTEND Family Medicine
DX: Z12.31 Encounter for screening mammogram for malignant neoplasm of breast (principal); Z78.0 Asymptomatic menopausal state; Z80.3 Family history of malignant neoplasm of breast
CPT/HCPCS: 77063; 77067

== ENCOUNTER → 2022-06-08 | Outpatient (CLI) | payer OTHER ==
[2022-06-08 11:29] VITALS: BP 114/77; PULSE 71; RESP 18; TEMP 97.5
--- NOTE | 2022-06-08 14:45 | P.PAINPG ---
PQRS Measure Charge Sheet Comment: HISTORY OF PRESENT ILLNESS: 51 yr old female w at side as a referral from Dr Overton presents today w severe and chronic LBP secondary to for evaluation. Pt states pain level is provoked at 7 /10 in intensity, constant, localized in the lower lumbar spine where it meets the tailbone, sharp in character w shooting pain towards the R buttocks. Pain is provoked by bending, sitting up right for periods of 30 min or more. Pain is alleviated by medications (Percocet 7.5/325mg ), Lidoderm patches, injections (R Hip Trochanteric injection), ice, heat, PT x 2 sessions in Summer 2021 which provoked intractable pain, PT guided home stretching regimen as tolerated, laying supine and rest. PMH: DM II, SLE, Pancreatitis PSH: EGD (2020), Cholecystectomy, Shunt for Gall Stones, Frozen Shoulder Surgery SH: Former tobacco user, No ETOH abuse, No illicit drug use FH: Mo- CHF, CVA, [place]. Fa- CHF, DM, CABG surgery. All: See list Meds: See list REVIEW OF ORGAN SYSTEMS: CONSTITUTIONAL: No fevers or chills. No recent weight loss. NEUROLOGICAL: + numbness and tingling along the distal extremities. No seizure disorders or headaches. MUSCULOSKELETAL: + pain PSYCHIATRIC: Denies current depression or suicidal thoughts. Physical Examinations : Constitutional : Cooperative , not in acute distress . Neurologic : Cranial nerve II to XII intact. No focal neurological deficits. Psychiatric : alert & oriented x 3. Matching mood & appropriate affect. Judgment & insight intact. Musculoskeletal : Cervical Spine Motor strength in the deltoid and biceps: Normal right side. Normal Left side Motor strength biceps and the wrist extensors: Normal right side . Normal left side Motor strength in the triceps muscle: Normal right side. Normal left side Deep tendon reflexes: Normal at the biceps. Normal at Brachioradialis. Normal at triceps Vertebral body tenderness to deep palpation over Cervical facet loading test: positive bilaterally Spurling test: positive bilaterally Neck distraction test: positive bilaterally Simone sign: positive bilaterally Lumbar spine Motor strength lower extremities ,thigh and legs 5/5 Right side , 5/5 Left side Deep tendon reflexes : Normal Knee Jerk. Normal Ankle Jerk Vertebral body tenderness over Lumbar facet Loading Test: positive Right / positive Left Range of motion of the lumbar spine Flexion 30 degrees, extension 10 degrees Straight Leg Raise test: Left/ Right positive at degree Casey test: positive right / positive left. Severe tenderness over the Sacroiliac joint on the Right / Left sides Gaenslen test: positive bilaterally Seated flexion test: positive bilaterally. Sacral spine : Severe tenderness over the Sacroiliac joint: right side / left side Range of motion: Flexion of the lumbar spine <60 degrees Range of motion: Extension of the lumbar spine <20 degrees Gaenslen's Test positive on R Casey test: positive right side / left side R positive Thigh Thrust Test R Sacral Thrust Test positive Imaging: CT lumbar spine from 04/18/22 reviewed Assessment/ Plan : R Sacroiliitis Recommendation of R SI injection. May need a series for optimal pain relief. Risks, benefits of procedure discussed and patient verbalized understanding. Admits to aspirin or anti- coagulant use or medical history of diabetes. Protocol for discontinuation/ continuation of medications lina procedure discussed. All questions answered. I have spent greater than 30 minutes on patient care today. Dr Patricia was available by phone for the evaluation of this patient. The time was used to review the medical records including relevant urine studies and Prescription history (MAPs), review of the available imaging, evaluation and examination of the patient, coordination of care with the medical staff and if applicable referring physicians, as well as creation of the medical record PQRS Narrative: Smoking Status Former smoker Home Medications: Ambulatory Orders Dapagliflozin/Metformin HCl [Xigduo Xr 5 mg-1,000 mg Tablet] 1 each PO BID 05/28/20 HYDROcodone/APAP 10-325MG [[place] 10-325] 1 tab PO Q4HR PRN 02/21/22 Insulin Glargine,Hum.rec.anlog [Toujeo Max Solostar] 24 - 30 units SQ DAILY 02/21/22 Insulin Regular, Human [Afrezza (180 doses) Cartridge (Inhal)] 8 - 24 units INHALATION DAILY 02/21/22 Non Formulary Drug 1 each PO DAILY 02/21/22 Pioglitazone [Actos] 15 mg PO DAILY 02/21/22 Controlled Substance Measures - Controlled Substance Measures Is patient prescribed a controlled substance at discharge?: No
== END ==
LOC: PNWHC3 10:26
PROVIDERS: ATTEND Specialist
DX: M46.1 Sacroiliitis, not elsewhere classified (principal); G89.29 Other chronic pain; E11.9 Type 2 diabetes mellitus without complications; M32.9 Systemic lupus erythematosus, unspecified; K85.90 Acute pancreatitis without necrosis or infection, unspecified; Z87.891 Personal history of nicotine dependence; Z88.2 Allergy status to sulfonamides; Z88.1 Allergy status to other antibiotic agents; Z88.5 Allergy status to narcotic agent; Z88.7 Allergy status to serum and vaccine; Z88.6 Allergy status to analgesic agent
CPT/HCPCS: 99211

== ENCOUNTER 2022-07-13 11:05 | Day surgery (SDC) | payer OTHER ==
[2022-07-11 15:20] VITALS: BMI 32.5
[~2022-07-13 11:05] MED LIST changes: -LIDOCAINE 1% (10MG/ML) FOR IV START INTRADERMA ONE; -LIDOCAINE 1% INJ 10MG/ML (20 ML MDV) ONE; -PROPOFOL 10 MG/ML 20 ML VIAL IV ONE
[2022-07-13 11:44] LABS: Glucose,Whole Blood 343 mg/dL (70-110)
[2022-07-13 11:45] VITALS: RESP 16; TEMP 97
[2022-07-13] MEDS ORDERED: TRIAMCINOLONE ACETONIDE 40 MG/ML 1 ML VIAL ONE (12:46)
[2022-07-13] MEDS ORDERED: MIDAZOLAM 2 MG/2 ML VIAL ONE (12:46)
[2022-07-13] MEDS ORDERED: fentaNYL (PF) 50 MCG/ML 2 ML AMP ONE (12:46)
[2022-07-13] MEDS ORDERED: IOPAMIDOL M200 10 ML VIAL ONE (12:46)
--- NOTE | 2022-07-13 13:02 | P.PCN ---
Date of Procedure: 07/13/22 Description of Procedure: PREOPERATIVE DIAGNOSIS: Sacroiliac joint dysfunction POSTOPERATIVE DIAGNOSIS: Sacroiliac joint dysfunction. PROCEDURES: 1. Right-sided Sacroiliac joint steroid injection #1 out of 2 2. Sacroiliac joint arthrogram. SURGEON: Irvin Cool ANESTHESIA: Local and IV sedation : Versed 2 mg, and fentanyl 100 g. Sedation supervision start time : 1250 sedation Supervision end time: 1259 EBL: None. Specimen removed: None Fluoroscopic image: saved to electronic medical records. PROCEDURE INDICATIONS: This patient with a history of chronic low back pain, and sacroiliac joint dysfunction. Patient tried conservative therapy. Came here for intervention management. PROCEDURE DESCRIPTION: The patient was seen and identified in the preoperative area. Risks, benefits, complications, and alternatives were discussed with the patient. The patient agreed to proceed with the procedure and signed the consent. IV was started, and vital signs were stable. Patient was taken to the OR and time out was completed. The patient was placed in the prone position on procedure table and a pillow was placed under the abdomen to reduce lumbar lordosis. The lumbosacral area was prepped and draped in the usual sterile fashion. Critical pause was taken. Vital signs were closely monitored during the procedure. For the right side, the fluoroscopic camera was placed in left oblique view and right SI joint lower pole was identified. Skin entry point was infiltrated with 1% lidocaine and 22-gauge 3.5 inch spinal needle was introduced into the inferior one-third of SI joint and after penetrating into the joint arthrogram was done. 0.5 ml of [id number] contrast was injected after negative aspiration for blood, and air and negative for paresthesia. Good spread of the contrast into the SI joint has been seen. Then again after negative aspiration of spinal fluid and blood and negative for neurological symptoms, 3 mL of a solution containing total 2.mL of 1% preservative-free lidocaine mixed with 40 mg of Kenalog was injected. Needle was withdrawn intact. Skin was cleansed, and bandages were applied. COMPLICATIONS: None. DISPOSITION / PLANS: The patient was placed in a supine position and transferred to the recovery area in a stable condition for observation and was discharged from the recovery room after meeting discharge criteria. Home discharge instructions given to the patient by the staff. The patient was reexamined prior to discharge. The patient will schedule for follow-up visit with the pain clinic in 4 weeks duration.
[2022-07-13] MEDS ORDERED: IV FLUID CONTINUATION 600 ML IV ONE (13:06)
[2022-07-13 13:10] LABS: Glucose,Whole Blood 247 mg/dL (70-110)
[2022-07-13 13:23] VITALS: BP 122/79; PULSE 74
--- NOTE | 2022-07-13 14:22 | FL ---
EXAMINATION TYPE: FL guided pain mgmt statistic DATE OF EXAM: 07/13/2022 CLINICAL HISTORY: Right sacroiliac joint pain. TECHNIQUE: Fluoroscopy. COMPARISON: None. FINDINGS: Fluoroscopic guidance was provided during pain relief procedure performed by Dr. Cool. A total of 6.9 seconds of fluoroscopic time was utilized during the procedure and 1 spot images are acquired. Single image acquired shows needle localization at level of the right sacroiliac joint wit h contrast injection. IMPRESSION: As Above. TOTAL DAP = 0.86943 mGy x m2
== END 2022-07-13 13:42 | disposition home or self-care (01) ==
LOC: ORPAIN 11:05
DX: M53.3 Sacrococcygeal disorders, not elsewhere classified (principal); G89.29 Other chronic pain; E11.9 Type 2 diabetes mellitus without complications; F41.9 Anxiety disorder, unspecified; M32.9 Systemic lupus erythematosus, unspecified; Z90.49 Acquired absence of other specified parts of digestive tract; Z98.890 Other specified postprocedural states; Z98.891 History of uterine scar from previous surgery; Z88.1 Allergy status to other antibiotic agents; Z88.8 Allergy status to other drugs, medicaments and biological substances; Z79.899 Other long term (current) drug therapy
CPT/HCPCS: J2250; J3301; J3010; Q9966; G0260; 27096; 99152

== ENCOUNTER → 2022-09-07 | Outpatient (CLI) | payer OTHER ==
[2022-09-07 13:44] VITALS: BP 131/84; PULSE 65; RESP 18; TEMP 98.1
--- NOTE | 2022-09-07 15:27 | P.PAINPG ---
PQRS Measure Charge Sheet Comment: 51 yr old female w at side presents today w severe and chronic LBP secondary to R Sacroiliitis for evaluation. PT underwent a R SI joint injection where she experienced 15 % pain relief x 7 wks s/p procedure. Pt states pain level is provoked at 7 /10 in intensity, constant, localized in the lower lumbar spine where it meets the tailbone, sharp in character w shooting pain towards the R buttocks. Pain is provoked by bending, sitting up right for periods of 30 min or more. Pain is alleviated by medications ([place] 10/325mg ), Lidoderm patches, injections (R Hip Trochanteric injection), ice, heat, PT x 2 sessions in Summer 2021 which provoked intractable pain, PT guided home stretching regimen as tolerated, laying supine and rest. Oswetry Pain Score of 36. Physical Examinations : Constitutional : Cooperative , not in acute distress . Neurologic : Cranial nerve II to XII intact. No focal neurological deficits. Psychiatric : alert & oriented x 3. Matching mood & appropriate affect. Judgment & insight intact. Musculoskeletal : Cervical Spine Motor strength in the deltoid and biceps: Normal right side. Normal Left side Motor strength biceps and the wrist extensors: Normal right side . Normal left side Motor strength in the triceps muscle: Normal right side. Normal left side Deep tendon reflexes: Normal at the biceps. Normal at Brachioradialis. Normal at triceps Vertebral body tenderness to deep palpation over Cervical facet loading test: positive bilaterally Spurling test: positive bilaterally Neck distraction test: positive bilaterally Simone sign: positive bilaterally Lumbar spine Motor strength lower extremities ,thigh and legs 5/5 Right side , 5/5 Left side Deep tendon reflexes : Normal Knee Jerk. Normal Ankle Jerk Vertebral body tenderness over L5 Lumbar facet Loading Test: positive Right / positive Left Range of motion of the lumbar spine Flexion 30 degrees, extension 10 degrees Straight Leg Raise test: Left/ Right positive at 35 degrees Casey test: positive right / positive left. Severe tenderness over the Sacroiliac joint on the Right / Left sides Gaenslen test: positive bilaterally Seated flexion test: positive bilaterally. Sacral spine : Severe tenderness over the Sacroiliac joint: right side / left side Range of motion: Flexion of the lumbar spine <60 degrees Range of motion: Extension of the lumbar spine <20 degrees Gaenslen's Test positive on R Casey test: positive right side / left side R positive Thigh Thrust Test R Sacral Thrust Test positive Imaging: CT lumbar spine from 04/18/22 reviewed Assessment/ Plan : R Sacroiliitis Recommendation of use of lumbar support brace Dx: Isela 89.4, M51.36. Recommendation of TEODORO L5-S1. May need a series of injections for optimal pain relief. Risks, benefits of procedure discussed and pt verbalized understanding. Protocol for discontinuation/ continuation of medications lina procedure discussed. All questions answered. I have spent greater than 30 minutes on patient care today. Dr Patricia was available by phone for the evaluation of this patient. The time was used to review the medical records including relevant urine studies and Prescription history (MAPs), review of the available imaging, evaluation and examination of the patient, coordination of care with the medical staff and if applicable referring physicians, as well as creation of the medical record PQRS Narrative: Smoking Status Former smoker Hx Alcohol Use (MH) No Home Medications: Ambulatory Orders HYDROcodone/APAP 10-325MG [[place] 10-325] 1 tab PO Q6H PRN 02/21/22 Insulin Glargine,Hum.rec.anlog [Toujeo Max Solostar] 24 - 30 units SQ DAILY PRN MDD can tolerate this insulin 02/21/22 Insulin Regular, Human [Afrezza (180 doses) Cartridge (Inhal)] 8 - 24 units INHALATION DAILY 02/21/22 Pioglitazone [Actos] 15 mg PO DAILY 02/21/22 Albuterol Inhaler [Ventolin Hfa Inhaler] 1 - 2 puff INHALATION Q6H PRN 07/11/22 Multivit-Min/Folic Acid/Pxx198 [Alive Premium Adult Multivit] 1 each PO DAILY 07/11/22 metFORMIN HCL 500 mg PO BID 07/11/22 ondansetron HCL [Zofran] 8 mg PO Q8HR PRN 07/11/22 Controlled Substance Measures - Controlled Substance Measures Is patient prescribed a controlled substance at discharge?: No
== END ==
LOC: PNWHC3 11:17
PROVIDERS: ATTEND Specialist
DX: M46.1 Sacroiliitis, not elsewhere classified (principal); G89.29 Other chronic pain; Z87.891 Personal history of nicotine dependence; Z88.7 Allergy status to serum and vaccine; Z88.2 Allergy status to sulfonamides; Z88.1 Allergy status to other antibiotic agents; Z88.5 Allergy status to narcotic agent
CPT/HCPCS: 99211

== ENCOUNTER 2022-10-12 11:20 | Day surgery (SDC) | payer OTHER ==
[2022-10-06 11:55] VITALS: BMI 33.0
[2022-10-12 11:52] VITALS: TEMP 97.2
[2022-10-12 12:00] LABS: Glucose,Whole Blood 256 mg/dL (70-110)
[2022-10-12] MEDS ORDERED: methylPREDNISolone ACETATE 40 MG/ML 1 ML VIAL ONE (12:14)
[2022-10-12] MEDS ORDERED: IOPAMIDOL M200 10 ML VIAL ONE (12:14)
--- NOTE | 2022-10-12 12:21 | P.PCN ---
Date of Procedure: 10/12/22 Procedure(s) Performed: PREOPERATIVE DIAGNOSIS: 1- Lumbar Degenerative Disc Diseases 2-right sacroiliitis POSTOPERATIVE DIAGNOSIS: 1-lumbar degenerative disc disease. 2-right sacroiliitis PROCEDURE 1. Lumbar epidural steroid injection under fluoroscopic guidance at the L5-S1 level. (Fluoroscopy imaging was available in radiology department) 2. Lumbar epidurogram. ANESTHESIA: Lidocaine 1% 3 and then only. EBL: Minimal PROCEDURE INDICATION: The patient with low back pain and radiculitis symptoms unresponsive to conservative treatment. Fluoroscopy was used to optimize visualization of the needle placement and to maximize safety. PROCEDURE DESCRIPTION / TECHNIQUE: The patient was seen and identified in the preoperative area. Risks, benefits, complications including but not limited to infections ,bleeding ,allergic reaction to the medications ,nerve damage and not complete pain releife , and alternatives were discussed with the patient. The patient agreed to proceed with the procedure and signed the consent, and vital signs were stable. Patient was taken to the OR and time out was completed. The patient was placed in the prone position on procedure table and a pillow was placed under the abdomen to reduce lumbar lordosis. The lumbosacral area was prepped and draped in the usual sterile fashion.ere closely monitored during the procedure. Vital signs was monitered during the entire procedure. Using anterior-posterior fluoroscopy, the L5-S1 interlaminar space was identified and the skin over this site was marked and then infiltrated with 1% lidocaine subcutaneously. Subsequently, a 20-gauge Tuohy epidural needle was inserted and advanced toward the epidural space using the ``Loss of resistance technique and guided by AP and lateral fluoroscopy. The correct needle position in the epidural space was verified with the injection of 2 mL of the water soluble contrast dye Isovue 200 contrast and observing an excellent epidurogram with the epidural spread of the dye, after negative aspiration for blood and CSF and in the absence of paresthesias. Again after negative aspiration, a 6 ml mixture containing 40 mg of Depo-medrol ( Preservetive Free ), and 2 ml of preservative free Normal Saline, and 2 ml of preservative free lidocaine 1% s olution was injected and a washout of epidurogram was seen. Needle was withdrawn intact, skin was cleansed, and bandages were applied. COMPLICATIONS: None DISPOSITION / PLANS: The patient was placed in a supine position and transferred to the recovery area in a stable condition for observation. There was no evidence of lower extremity motor or sensory deficit after the procedure. Patient was discharged from the recovery room after meeting discharge criteria. Home discharge instructions were given to the patient by the staff. The patient was reexamined prior to discharge. The patient will schedule a follow up in the clinic in 2-4 weeks.
[2022-10-12 12:25] VITALS: BP 129/81; PULSE 78; RESP 16
[2022-10-12] MEDS ORDERED: LACTATED RINGERS 1,000 ML IV SCH (12:31)
--- NOTE | 2022-10-12 14:48 | FL ---
EXAMINATION TYPE: FL guided pain mgmt statistic DATE OF EXAM: 10/12/2022 FLUOROSCOPY Fluoroscopy time of 5 seconds was used during lumbar epidural steroid injection. 2 image/s document/ s the procedure. Total DAP: .10255 mGym2
== END 2022-10-12 12:50 | disposition home or self-care (01) ==
LOC: ORPAIN 11:20
PROVIDERS: ATTEND Specialist
DX: M51.16 Intervertebral disc disorders with radiculopathy, lumbar region (principal); M46.1 Sacroiliitis, not elsewhere classified
CPT/HCPCS: 62323; J1030; Q9966

== ENCOUNTER → 2022-10-23 | Day surgery (SDC) | payer OTHER ==
[2022-10-17 11:14] VITALS: BMI 34.5
[2022-10-23 09:04] VITALS: BP 147/73; PULSE 71; RESP 16; TEMP 97
--- NOTE | 2022-10-31 08:54 | OP ---
OPERATIVE REPORT DATE OF SERVICE : 10/30/2022 REQUESTING PHYSICIAN: Gloria Ch HISTORY OF PRESENT ILLNESS: The patient is a 52-year-old pleasant white female scheduled for esophageal manometry as a part of evaluation of dysphagia, intermittent dysphagia to solids and liquids for the last 5 years duration. Her symptoms have been progressively getting worse. Recently, she had an upper endoscopy done, which revealed normal-appearing esophagus with no evidence of esophagitis or esophageal stricture. However, there was tightness of the lower esophageal sphincter suspicious for esophageal achalasia and hence she is scheduled for esophageal manometry to evaluate further. PROCEDURE PERFORMED: Esophageal manometry. PREOPERATIVE DIAGNOSIS: Intermittent dysphagia to solids and liquids of 5 years duration. DESCRIPTION OF PROCEDURE: After informed consent was obtained from the patient, she was brought into the endoscopy unit. She was placed in the supine position. The esophageal manometry catheter was passed from the external nostril and was gently advanced into the esophagus and into the stomach and the study was performed by Endoscopy nurse, Susan. The study was interpreted using Madison classification. Following are the study results: 1. Lower esophageal sphincter data: Mean IRP 36 mmHg. 2. Lower esophageal body: Mean DCI 8861 mmHg.s.cm. Simultaneous contractions, 50%. Peristaltic contractions, 20%. Retrograde contractions, 20%. 3. Impedance study: Complete liquid transit 80%. Complete viscous transit 60%. INTERPRETATION: The above esophageal manometry study shows evidence of increased lower esophageal sphincter IRP and there was multiple isometric contractions/simultaneous contractions involving the esophageal body. However, there were a few hypercontractile contractions in the distal esophagus and overall this study is very suspicious for esophageal achalasia, but does not fit all the manometry criteria at this time. MMODL / IJN: [id number] /
== END ==
LOC: ORWHC2ENDO 08:45
PROVIDERS: ATTEND Internal Medicine Gastroenterology
DX: R13.10 Dysphagia, unspecified (principal)
CPT/HCPCS: 91010

== ENCOUNTER → 2022-11-06 | Outpatient (CLI) | payer OTHER ==
[2022-11-06 10:59] VITALS: BP 136/80; PULSE 72; RESP 16; TEMP 97.8
--- NOTE | 2022-11-06 14:18 | P.PAINPG ---
PQRS Measure Charge Sheet Comment: 51 yr old female w at side presents today w severe and chronic LBP secondary to R Sacroiliitis for evaluation s/p TEODORO L5-S1. Pt states she experienced 70% pain relief x 1 wks s/p procedure. Pt states pain level is provoked at 7 /10 in intensity, constant, localized in the lower lumbar spine where it meets the tailbone, sharp in character w shooting pain towards the R buttocks. Pain is provoked by bending, sitting up right for periods of 30 min or more. Pain is alleviated by medications, Lidoderm patches, injections (R Hip Trochanteric injection), ice, heat, PT x 2 sessions in Summer 2021 which provoked intractable pain, PT guided home stretching regimen as tolerated, laying supine and rest. Interventional procedures include R SI injection, TEODORO L5-S1, R Hip Trochanteric injection Medications include Norc 10/325mg, Lidoderm Physical Examinations : Constitutional : Cooperative , not in acute distress . Neurologic : Cranial nerve II to XII intact. No focal neurological deficits. Psychiatric : alert & oriented x 3. Matching mood & appropriate affect. Judgment & insight intact. Musculoskeletal : Cervical Spine Motor strength in the deltoid and biceps: Normal right side. Normal Left side Motor strength biceps and the wrist extensors: Normal right side . Normal left side Motor strength in the triceps muscle: Normal right side. Normal left side Deep tendon reflexes: Normal at the biceps. Normal at Brachioradialis. Normal at triceps Vertebral body tenderness to deep palpation over Cervical facet loading test: positive bilaterally Spurling test: positive bilaterally Neck distraction test: positive bilaterally Simone sign: positive bilaterally Lumbar spine Motor strength lower extremities ,thigh and legs 5/5 Right side , 5/5 Left side Deep tendon reflexes : Normal Knee Jerk. Normal Ankle Jerk Vertebral body tenderness Lumbar facet Loading Test: positive Right / positive Left Range of motion of the lumbar spine Flexion 30 degrees, extension 10 degrees Straight Leg Raise test: Left/ Right positive at 35 degrees Casey test: positive right / positive left. Severe tenderness over the Sacroiliac joint on the Right / Left sides Gaenslen test: positive bilaterally Seated flexion test: positive bilaterally. Sacral spine : Severe tenderness over the Sacroiliac joint: right side / left side Range of motion: Flexion of the lumbar spine <60 degrees Range of motion: Extension of the lumbar spine <20 degrees Gaenslen's Test positive on R Casey test: positive right side / left side R positive Thigh Thrust Test R Sacral Thrust Test positive Imaging: CT lumbar spine from 04/18/22 reviewed Assessment/ Plan : Lumbar DDD, R Sacroiliitis Will follow up w Dr Overton to explore additional treatment options. All questions answered. I have spent greater than 30 minutes on patient care today. Dr Patricia was available by phone for the evaluation of this patient. The time was used to review the medical records including relevant urine studies and Prescription history (MAPs), review of the available imaging, evaluation and examination of the patient, coordination of care with the medical staff and if applicable referring physicians, as well as creation of the medical record PQRS Narrative: Smoking Status Former smoker Hx Alcohol Use (MH) No Home Medications: Ambulatory Orders HYDROcodone/APAP 10-325MG [[place] 10-325] 1 tab PO Q6H PRN 02/21/22 Insulin Regular, Human [Afrezza (180 doses) Cartridge (Inhal)] 8 - 24 units INHALATION TID 02/21/22 Pioglitazone [Actos] 15 mg PO DAILY 02/21/22 Albuterol Inhaler [Ventolin Hfa Inhaler] 1 - 2 puff INHALATION Q6H PRN 07/11/22 Multivit-Min/Folic Acid/Yqz118 [Alive Premium Adult Multivit] 1 each PO DAILY 07/11/22 metFORMIN HCL 500 mg PO BID 07/11/22 ondansetron HCL [Zofran] 8 mg PO Q8HR PRN 07/11/22 Empagliflozin [Jardiance] 25 mg PO DAILY 10/06/22 Famotidine 40 mg PO QAM 10/17/22 Controlled Substance Measures - Controlled Substance Measures Is patient prescribed a controlled substance at discharge?: No
== END ==
LOC: PNWHC3 10:26
PROVIDERS: ATTEND Specialist
DX: M51.36 Other intervertebral disc degeneration, lumbar region (principal); M46.1 Sacroiliitis, not elsewhere classified; Z88.8 Allergy status to other drugs, medicaments and biological substances; Z88.2 Allergy status to sulfonamides; Z88.1 Allergy status to other antibiotic agents; Z87.891 Personal history of nicotine dependence
CPT/HCPCS: 99211

== ENCOUNTER 2023-03-08 11:08 | Day surgery (SDC) | payer OTHER ==
[2023-03-01 12:12] VITALS: BMI 34.1
--- NOTE | 2023-03-08 07:19 | P.HPOR ---
History of Present Illness H&P Date: 03/08/23 .T:Title: [facility] Date of :[birth year] R14 Allergies: Age: 51 year Height: 5'6" Weight: 206 lbs BP:125/76 BMI: 33.25 kg/m2 Occupation: Disabled VAS: 7 CHIEF COMPLAINT: Re-check on low back pain after undergoing lumbar epidural steroid injections DOI: Chronic DOS: n/a Duration of current treatment regiment:n/a HISTORY: Xrays No new xrays taken in office Trauma or injury No Work-Related No Pain description Diffuse & sharp. Location Posterior Patient notes that their pain radiates to right lower extremity Activity Modification Yes Hand Dominance Right TREATMENTS COMPLETED: 6 weeks of PT completed? Month and Year of last PT date? Yes How many sessions? 12 Did it help? No Physician directed home exercise completed? Yes, Patient has trialed the physician directed home exercise program without relief of their symptoms. Medications Yes List: [place] 10/325 QID & Lidocaine patches Alternative interventions Chiropractic: No Massage therapy: No R.I.C.E: yes Brace: No Injections Yes Lumbar TEODORO How many: 1 RFA: No SUBJECTIVE: Today pt presents for SIJ injection on the right. She got good relief from the other injections and she is ready for a new injection. She states no issues. No significant changes in her medical history since last visit and return of her sx in her R SIJ. She understands risks and benefits as laid out and is ready and willing to proceed. 11/01 Ms. Garcia returns to the office today for a re-check on her low back pain following recent lumbar epidural steroid injections. The patient reports experiencing approximately 1 week of relief after receiving the injection. She notes that her symptoms have gradually returned over the last 2 to 3 weeks. The patient reports experiencing a continued sharp pain throughout the low back that radiates down into the posterior aspect of the right lower extremity. She notes her right leg pain is associated with numbness and tingling. She states her right lower extremity symptoms have significantly worsened since she was last evaluated in office on 05/11/2022. The patient states that her symptoms are exacerbated by prolonged sitting, going up the stairs, and going from a seated to standing position. The patient states her symptoms make it very difficult for her to complete her regular activities of daily living. She reports experiencing moderate to severe sleep disturbances related to her ongoing pain and associated symptoms. Other than the lumbar ESIs, the patient has also trialed conservative treatment in the form of physical therapy, a physician directed at home exercise program, activity modification, at home heat/ice therapies, and medication management, all with no significant or sustained relief. The patient is curren tly taking [place] and applying Lidocaine patches to the low back as needed, with very minimal relief of her symptoms. Otherwise she denies any bladder or bowel retention/incontinence, no perineal numbness/tingling, and ambulates independently today. The patients' past social, medical, family, surgical history, as well as review of systems, have been reviewed. Please refer to the Neurosurgery History and Physical form that has been scanned in to our electronic medical record system. 14 points review of systems completed and as stated in HPI, all other systems reviewed are negative. Social History: Reviewed, see appropriate section of the chart for details. P3 Family History: Reviewed, see appropriate section of the chart for details. P2 Past Medical History: Reviewed, see appropriate section of the chart for details. [id number] Medications: Rx: LADIMIR ORAL , Ref: 0 Rx: metFORMIN 1,000 mg tablet Ref: 0 Rx: PIOGLITAZONE HCL 15MG ORAL Tablet, Ref: 0 Rx: STEGLARTO 15mg ORAL , Ref: 0 Rx: VICTOZA 18MG/3ML Subcutaneous Injection, Ref: 0 Rx: oxyCODONE Ref: 0 Rx: lidocaine 4 % topical patch Ref: 0 P1 PHYSICAL EXAMINATION: General:Awake, alert, appropriate for age, in no acute distress. HEENT:No unusual neck masses around region of lateral neck triangle, thyroid, supraclavicular groove Heart: Regular rate and rhythm, normal S1, S2 and no murmur/gallop. Lungs:Clear to auscultation bilaterally with no use of accessory muscles. Extremities:Skin warm and dry without acute lesions, coloration, temperature, skin intact, no tenderness or erythema Integument: Hairy patches: Absent Dorsal skin dimples: Absent Cafe au lait spots: Absent Surgical incisions: No Palpation: Please see Pain drawing on Intake sheet for further detail. Midline spinal tenderness: No E6 Paralumbar tenderness: No E6 Parathoracic tenderness: No E6 Buttocks tenderness: yes E6 Special findings: yes Severe TTp over the right GTB SI testing: R>L Right SI tenderness + Compression + Distraction + Fortans finger POSTURAL and MUSCULO-SKELETAL EVALUATION: Coronal Balance: NEUTRAL Recumbent testing: Patient is able to lay flat on back Sagittal Balance: NEUTRAL Shoulder Profile: LEVEL Pelvic Girdle: LEVEL Neck ROM: UNRESTRICTED Lumbar ROM: RESTRICTED Shoulder ROM: Symmetrical Hip ROM: right hip restricted with pain, painful popping and clicking with ROM testing Knee ROM: Symmetrical Hands: Normal appearance, symmetrical Feet: Normal appearance, Symmetrical VASCULAR STATUS : LEFTRIGHT Wrist Pulses INTACT INTACT Pedal Pulses (Dors. pedis & post.tibialis) INTACT INTACT Color NORMAL NORMAL Edema Absent Absent NEUROLOGIC EXAMINATION: Mental Status:Awake and alert, fully oriented, with normal attention, concentration and memory, and fluent, appropriate speech. Cranial Nerves: I: Olfactory not tested. II: Visual acuity normal, no visual field deficit noted with confrontation. III,IV: Normal pupillary reflexes & intact extraocular movements without nystagmus. V,: Intact symmetrical facial sensation. VII: Intact symmetrical facial motor movement VIII: Hearing intact. IX,X: Intact gag, swallow, & normal voice. XI: Sternocleidomastoid, trapezius function intact. XII: Tongue midline with normal movements. L'hermitte's Sign: Negative / absent Spurling'Sign: Absent bilaterally. Cubital percussion test: Absent bilaterally. Day-Tinel sign - Carpal region: Absent bilaterally. Straight Leg Raising: Absent bilaterally. Crossed straight leg raise: negative O8 MOTOR EXAM (0-5/5, N/T) STRENGTH RIGHT LEFT Shoulder Abd (not part of the SEDRICK score) 5 5 Elbow Flexors 5 5 Elbow Extensor 5 5 Wrist Dorsiflexors 5 5 Finger Abductor 5 5 Day Care Assistant 5 5 Hip Flexor (Not part of SEDRICK Motor score) 4- 5 Knee Flexor 4+ 5 Knee Extensor 4+ 5 Ankle dorsiflexor 4+ 5 Ankle plantarflexion 4+ 5 Extensor hallucis 4+ 5 REFLEXES(0-4/2, NT) RIGHT LEFT Upper Extremities 2 2 Lower Extremities 2 2 Pathological Reflexes RIGHT LEFT Day's Absent Absent Clonus Absent Absent Babinski Absent Absent # Indicates mechanical impairment Muscle appearance: Symmetrical, without signs of atrophy or dystrophy. Rectal Tone:Deferred Sensory system (0-4, N/T) Test type RU CARLOS RL LL Joint-Position 2 2 2 2 Vibration 2 2 2 2 Pain & LT sense 2 2 2 2 Dermatomal Deficit: None None None L45 Gait and Functional Evaluation: Ambulatory aids: Independent Romberg's test: Intact bilaterally Toe heel walk / heel-toe walk intact while maintaining satisfactory balance? No Squatting/straightening w/o assistance to a min of 60 degree knee flexion? No Single leg stance: not intact on the right side. Trendelenburg sign negative bilaterally Hand and finger dexterity intact bilaterally? yes Disdiadochokinesis examination negative bilaterally? yes RADIOGRAPHIC STUDIES: No new x-rays taken in office today. IMPRESSION: It was my pleasure to have seen and examined Christie. I reviewed the patient's clinical syndrome, physical findings, and imaging studies during the appointment today. It is my impression that the patient has a diagnosis of. 1. Right sacroliitis 2. Right lower extremity radiculopathy I outlined the natural course history without intervention and various interventional options. PLAN: Based on my findings I suggest the following course of action: -Presently, I have recommended treatment in the form of two diagnostic right SI joint injections. The patient elects to proceed with this treatment option at this time. I discussed with the patient that if she experiences significant temporary relief from the injections or if they exacerbate her symptoms then she may elect to proceed with surgical intervention in the form of a right MIS SI joint fusion, which we will further discuss at her next follow-up appointment proceeding the two SI joint injections. - Advised patient to continue with supplements, health maintenance, and home exercise programs. Patient expressed understanding and will continue with these modalities. - Ambulate daily. - Take medications as directed. - Ice and rest for pain and swelling control. Spine Surgery Risk Review Ms. Garcia is presenting for evaluation of low back, buttock, and right lower extremity pain, right lower extremity numbness and tingling. It was my pleasure to have seen and examined Ms. Garcia. In our visit today we have had a chance to go over subjective complaints, physical examination findings and treatments including the natural course history without intervention and various interventional options. The patients imaging demonstrates: XRay Lumbar Multiview (AP, Lateral, Flexion, Extension) with AP pelvis; 5 views taken at [facility] on 01/18/22: - Images re-reviewed with the patient today and demonstrate: mild spondylitic changes throughout the lumbar spine with preserved alignment. Vertebral body heights are preserved. Disc height are preserved. No acute osseous abnormalities. Incidentially there are either gallstones or kidney stones noted in the abdomen that are rather large measuring around 12-15 mm. Pelvis: stable, no fractures. Mild osteoarthritis left hip. CT Myelogram 04/18/2022 done at [facility]: - Images re-reviewed with the patient today and demonstrate: Mild to moderate spondylotic changes at L3-S1 with some disc height loss, desiccation , facet arthrosis and sclerosis. No severe central stenotic lesions, moderate at L4-5 and L5-S1. Some foraminal stenosis as well. NO lesions or fractures noted. Alignment shows somewhat flattened LL with PI in range of LL. On physical exam, Ms. Garcia demonstrates: a continued sharp pain throughout the low back that radiates down into the posterior aspect of the right lower extremity. She notes her right leg pain is associated with numbness and tingling. She states her right lower extremity symptoms have significantly worsened since she was last evaluated in office on 05/11/2022. The patient states that her symptoms are exacerbated by prolonged sitting, going up the stairs, and going from a seated to standing position. The patient states her symptoms make it very difficult for her to complete her regular activities of daily living. She reports experiencing moderate to severe sleep disturbances related to her ongoing pain and associated symptoms. I have explained to the patient that as their condition progresses it will cause further neurological deficits and eventual paralysis. Based on the patients imaging, physical exam, and the rapid progression and disabling nature of their symptoms, at this time I recommend surgery in the form of a: Right SI joint injections, x2. I discussed the risk and benefits of this procedure at length with Ms. Garcia. The patient agreed to considered pursuing the procedure abovementioned. Prior to surgery, she should follow up with her PCP (Cardio, ID, IM etc) for clearance. Questions were invited and answered, and the patient wishes to proceed as outlined below. Currently, I am recommendin.Right SI joint injections, x2 2.Follow up with PCP for surgical clearance 3.Review of surgical risks and benefits as well as an educational packet on the proposed surgical procedure. Risks: All surgical procedures come with inherent risks, including those related to positioning, anesthesia, intraoperative findings, and postoperative complications. It is important to understand that surgery does not come with any guarantee of a successful outcome as complications and adverse events are always possible. The patient was given a handout in office today discussing the surgical procedure and risks associated with the intervention, both of which were discussed with the patient. These risks include but are not limited to the following: * Experiencing same, different or even worse symptoms in back, neck, arms, or legs compared to before surgery. Requiring further surgery or other forms of treatment presently or at some time in the future at same or other levels of the intended spine surgery. On an extreme but fortunately relatively rare basis severe complication such as blindness, stroke, heart attack, temporary and/or permanent nerve injury, paralysis, coma, or may occur, sometimes without known explanation. Surgical complications may include but are not limited to risk of infection, fluid accumulation in the surgical dissection site, including a seroma or hematoma, that requires additional surgery, wound drainage, bleeding, new numbness or weakness, vision changes/loss, spinal fluid leakage, non-healing and/or infected incision, headaches, difficulty or inability to swallow, hoarseness, hemopneumothorax, pneumothorax, impotence, retrograde ejaculation, vaginal dryness; injury to nerves, spinal cord, blood vessels, lymphatics or other vital organs (i.e., bowel injury, injury to the great vessels); heterotopic bone formation; complications related to the hardware such as screws, rods, cages including misplaced hardware, device failure, instrumentation at the wrong spine level, hardware fracture/breakage, or hardware loosening; vertebral failure of the spinal column above or below the newly placed hardware; retained surgical instrumentations or devices and the need for further surgery. * Medical risks of the planned spine surgery include but are not limited to generalized Infections to the whole body or local areas outside of the surgical site (sepsis), heart attack, bleeding, anaphylaxis, meningitis, seizure, epilepsy, hearing loss, burn bird, laceration of the head or other areas of the body, bruising, hypersensitivity of the skin, bladder over distension; allergic reaction; shoulder injury related to positioning; fat, bl ood and air clots to other areas of the body like heart, lungs, brain; failure of internal organs such as lungs, kidneys, liver and excessive bleeding. If blood transfusions are necessary, note that transfusions may cause intolerance reactions such as anaphylaxis or other complex reactions. Despite best efforts, the results of spine surgery might not heal in terms of bone, soft tissues such as skin, fascia, ligaments, and joints. Additionally, in order to achieve best possible results, spine surgery may be carried out beyond the initially planned levels and involve decompression, fusion including insertion of hardware at levels other than the original intended area of surgical interest change some portions of the procedure in order to ensure the best possible outcomes. With spine surgery and spinal fusion, there are different off label uses of instrumentation (devices, implants and hardware) as well as biological substances (bone morphogenic proteins, demineralized bone matrix) as well as using extra bone from allograft sources (i.e. cadaver bone) or autograft (iliac crest bone, ribs, or the spine itself). The patient has been given information about these practices and their inherent risks and benefits. [facility] is an educational center that serves as a training facility for neurosurgical and orthopedic FARM ADVIS[employer] and Nursing students. Physician assistants are medically trained surgical providers who function in the outpatient, inpatient, and operating room setting under the direct supervision of the attending surgeon. [facility] has multiple operating rooms with single and overlapping rooms running daily. They currently function under the required guidelines as produced by the [facility] Finance Committee with regards to the overlapping rooms and will continue to comply with changes to this policy as they occur. The requirements include and are complied with as follows: (1) the critical portions of the overlapping rooms will not occur at the same time, (2) the attending physician will be physically present during the critical portions of the procedure and immediately available during the entire case, and (3) a back-up attending is designated should the primary attending not be immediately available. The patient has had a chance to review all the listed information, has been given print outs detailing this information, and has had all his/her questions answered to their satisfaction. It was my pleasure to have seen and examined Ms. Garcia. In our visit today we have had a chance to go over my understanding of our patient's current condition, the natural course history without intervention and various interventional options. Questions were invited and answered, and the patient wishes to proceed as outlined above. I have seen and examined the patient for 25 minutes and we have spent more than 50% of the time in repeat and detailed counseling about the patient's condition, its natural course history with out and as much as can be predicted with surgery and re-review of various surgical treatment options. In conclusion, Ms. Garcia requested we proceed with the above suggested surgery and are willing to accept risks and limitations of the suggested surgery as nature of the disease process and our best attempts at treatment for the condition. Thank you again for allowing us to be part of your patient's care. Please don't hesitate to contact me if you have any further questions. Follow-up: After recivecing two right SI joint injections Patient Education: (Informational booklet, instructions, etc) given at today's appointment: Yes .ED:Patient Education: Y Medications Reviewed: YES In our visit today Ms. Garcia and I have had a chance to go over my understanding of the patient's current condition, the natural course history without intervention and various interventional options. Questions were invited and answered, and the patient wishes to proceed as outlined above. I will be sure to keep you updated afterMs. Garcia returns here for further follow-up. Thank you again for your referral. Please do not hesitate to contact me if you have any further questions. Signed and authenticated by: Janak Anderson [facility] [address] [place] [address] This message is confidential, intended only for the named recipient(s) and may contain information that is privileged or exempt from disclosure under oc licable law. If you are not the intended recipient(s), you are notified that the dissemination, distribution or copying of this information is strictly prohibited. If you received this message in error, please notify the sender then delete this message. Patient verbalizes understanding of the information discussed. The above note was initiated by Suzan Hernadez, physician recording surgical supply assistant for Dr. Janak Overton. This note has been reviewed by Dr. Overton, who has made his personal changes and impressions for this document. CC: Gloria Ch M.D. # SIGNED BY Janak Overton ([facility])11/22/2022 10:46AM Past Medical History Past Medical History: Diabetes Mellitus, Seizure Disorder Additional Past Medical History / Comment(s): Lupus, pancreatitis due to gallstones during , hx cardiac arrythmia, no current problems, had seizures >10 yrs ago, no need for meds, no further problems, constantly nauseated, vomiting, dysphagia for several months. Chronic back, right hip and leg pain, bilateral shoulder pain. History of Any Multi-Drug Resistant Organisms: None Reported Past Surgical History: Cholecystectomy, Orthopedic Surgery Additional Past Surgical History / Comment(s): ?shunt/stent for gallstones-CAN NOT HAVE MRI, bilatetal shoulder surgery, neck abscess I & D, esophageal manometry study. Past Anesthesia/Blood Transfusion Reactions: No Reported Reaction, Blood Transfusion Reaction, Family History of Problems w/ Anesthesia Additional Past Anesthesia/Blood Transfusion Reaction / Comment(s): Brother has difficulty waking up from anesthesia. Patient had seizure with blood transfusion. Past Psychological History: No Psychological Hx Reported Smoking Status: Former smoker Past Alcohol Use History: None Reported Additional Past Alcohol Use History / Comment(s): Quit smoking June 2016. Past Drug Use History: None Reported - Past Family History Father Family Medical History: Cancer, Congestive Heart Failure (CHF), Diabetes Mellitus Additional Family Medical History / Comment(s): CABG. Mother Family Medical History: Congestive Heart Failure (CHF), CVA/TIA, Myocardial Infarction ([place]) Additional Family Medical History / Comment(s): Breathing problems. Medications and Allergies Home Medications Medication Instructions Recorded Confirmed Type HYDROcodone/APAP 10-325MG [[place] 1 tab PO Q6H PRN 02/21/22 03/01/23 History 10-325] Insulin Regular, Human [Afrezza 8 - 24 units INHALATION TID 02/21/22 03/01/23 History (180 doses) Cartridge (Inhal)] Pioglitazone [Actos] 15 mg PO DAILY 02/21/22 03/01/23 History Albuterol Inhaler [Ventolin Hfa 1 - 2 puff INHALATION Q6H PRN 07/11/22 03/01/23 History Inhaler] Multivit-Min/Folic Acid/Wvd389 1 each PO DAILY 07/11/22 03/01/23 History [Alive Premium Adult Multivit] metFORMIN HCL 500 mg PO QID 07/11/22 03/01/23 History ondansetron HCL [Zofran] 8 mg PO Q8HR PRN 07/11/22 03/01/23 History Empagliflozin [Jardiance] 25 mg PO DAILY 10/06/22 03/01/23 History Ascorbic Acid/Collagen Hydr 1 each PO DAILY 01/12/23 03/01/23 History [Collagen Plus Vit C Capsule] Ferrous Sulfate [Feosol] 325 mg PO DAILY 01/12/23 03/01/23 History Insulin Glargine,Hum.rec.anlog 16 units SQ QAM 01/12/23 03/01/23 History [Toujeo Solostar] Turmeric Root Extract [Turmeric] 1,000 mg PO DAILY 01/12/23 03/01/23 History Vitamin B Complex 1 each PO DAILY 01/12/23 03/01/23 History Allergies Allergy/AdvReac Type Severity Reaction Status Date / Time ciprofloxacin [From Cipro] Allergy Anaphylaxis Verified 03/01/23 12:10 dulaglutide [From Trulicity] Allergy Dyspnea Verified 03/01/23 12:10 insulin detemir Allergy Dyspnea, Verified 03/01/23 12:10 Rash insulin glargine Allergy Dyspnea, Verified 03/01/23 12:10 Rash meperidine HCl [From Demerol] Allergy seizures Verified 03/01/23 12:10 Sulfa (Sulfonamide Allergy Rash/Hives Verified 03/01/23 12:10 Antibiotics) Physical Examination Osteopathic Statement: *. No significant issues noted on an osteopathic structural exam other than those noted in the History and Physical/Consult.
[~2023-03-08 11:08] MED LIST changes: -LACTATED RINGERS 1,000 ML IV SCH; +Pre Op ABX Message 1 EACH MISC MISCELLANE ONE
[2023-03-08 12:01] LABS: Glucose,Whole Blood 244 mg/dL (70-110)
[2023-03-08 12:14] VITALS: TEMP 98
[2023-03-08] MEDS ORDERED: BUPIVACAINE (PF) 0.25% 30 ML VIAL SQ ONE ×3 (12:15→12:25)
[2023-03-08] MEDS ORDERED: LIDOCAINE 2%-EPI 1:100,000 20 ML VIAL SQ ONE ×3 (12:16→12:25)
[2023-03-08] MEDS ORDERED: methylPREDNISolone ACETATE 40 MG/ML 1 ML VIAL INTRAARTIC ONE ×2 (12:17→12:25)
--- NOTE | 2023-03-08 12:54 | FL ---
EXAMINATION TYPE: FL guidance operating room Intraoperative/procedural fluoroscopic services were pro vided. Total fluoroscopy time is 0.7 seconds with a total of 2 submitted images to PACS. Please see t casi operative/procedural note for further details. DAP: 0.1996 Gycm2
[2023-03-08 13:03] VITALS: BP 105/70
[2023-03-08 13:26] VITALS: PULSE 78; RESP 18
--- NOTE | 2023-03-08 16:56 | P.OP ---
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, sacral and sacrococcygeal region M53.3 Sacrococcygeal disorders, not elsewhere classified Procedure(s) Performed: : Injection(s); single or multiple trigger point(s), 1 or 2 muscles [id number] Ultrasonic guidance for needle placement (eg, biopsy, aspiration, injection, localization device), imaging supervision and interpretation Implants: Anesthesia Medications: Local 5cc 1% lidocane 5cc 0.25% marcaine Injection Mix: SIJ: 1cc methylprednisolone 40/mL with 4cc marcaine Anesthesia: local Surgeon: Janak Overton Estimated Blood Loss (ml): 2 IV fluids (ml): 0 Urine output (ml): 0 Pathology: none sent Condition: stable Disposition: PACU Indications for Procedure: Mrs Garcia is presenting for evaluation of Right SIJ pain. It was my pleasure to have seen and examined Mrs Garcia Today we have had a chance to go over subjective complaints, physical examination findings and treatments including the natural course history without intervention and various interventional options. The patients imaging demonstrates: [No evidence of spinal pathology on imaging that would account for his symptoms. They have no hip OA that is visible to account for symptoms. 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 There is no evidence of any infectious process within the SIJ b/l. No lesions. No fractures.] On the physical exam, the patient demonstrates: TTP SIJ +compression +Distraction +Hip thrust +Thigh Thrust +Fortins Finger sign I have explained to the patient that as their condition progresses it will cause further pain, continued debility or even progressive pain and issues. Based on the patients imaging, physical exam, and the rapid progression and disabling nature of their symptoms, at this time I recommend surgery in the form of:RIGHT SI joint injection under fllouroscopic guidance. I discussed the risk and benefits of this procedure at length with Mrs Spann. The patient agreed to consider pursuing the procedure above mentioned. Prior to surgery, the patient should follow up with her PCP (Cardio, ID, IM etc) for clearance. Questions were invited and answered, and the patient wishes to proceed as outlined below. Currently, I am recommendin. SIJ injection under Flouroscipic guidance, RIGHT Description of Procedure: RIGHT SIJ injection The patient was seen and examined in their room. All protocols were followed. Informed consent was obtained, risks and benefits of the procedure were discussed at length. Risks including bleeding infection damage to the surrounding tissue and risk of reoperation were discussed with the patient. Risk of anesthesia up to and including was discussed with the patient. These are outlined in the risk review. They were willing to accept these risks and all of the risks of the procedure. The site was marked, the patient was willing to proceed with the procedure. The patient was transferred to the injection table. The Site was localized with Ultrasound and marked. Timeout was performed and all parties in agreement with procedure. The patient was then prepped and draped in a normal sterile fashion. Local anesthetic placed. Flouroscoipc guidnace used to localize needle to SIJ and localized SIJ again, Picture was captured. SI joint then accessed with a 18- gauge needle. Isovue was injected into joint with Xray to confirm placement. Once this was confirmed SIJ mixture as stated above injected without issues. Patient remained stable the entire time without any radicular symptoms during the injection phase. The needles were withdrawn and the area cleaned and Band- Aids placed. The patient then sat up slowly and was stable. They were road tested and were comfortable and stable to go home with family members who accompanied them.
== END 2023-03-08 13:13 | disposition home or self-care (01) ==
LOC: OR 11:08
PROVIDERS: ATTEND Orthopaedic Surgery
DX: M46.1 Sacroiliitis, not elsewhere classified (principal); M47.818 Spondylosis without myelopathy or radiculopathy, sacral and sacrococcygeal region; M53.3 Sacrococcygeal disorders, not elsewhere classified; Z79.899 Other long term (current) drug therapy
CPT/HCPCS: 20552; J1030; J0665